=== PATIENT | female | born 1965 | race Caucasian/White ===

== ENCOUNTER 2020-05-10 10:31 | Outpatient (REF) | payer OTHER, SELFPAY ==
[2020-05-10 22:12] LABS: ALT 33 U/L (14-59); AST 19 U/L (15-37); Anion Gap 9.2 mmol/L (3-11); BUN 14 mg/dL (7-18); CO2 25.8 mmol/L (21.0-32.0); Calcium 9.2 mg/dL (8.5-10.1); Calculated LDL 116 mg/dL (<100); Chloride 106 mmol/L (98-107); Cholesterol 189 mg/dL (<200); Glucose 125 mg/dL (74-106); HDL Cholesterol 47 mg/dL (40-60); Potassium 4.4 mmol/L (3.5-5.1); Sodium 141 mmol/L (136-145); Triglyceride 132 mg/dL (<150)
[2020-05-12 10:14] LABS: Hepatitis C Ab w Rflx HCV PCR Negative (Negative)
== END 2020-05-10 10:51 ==
LOC: NCHCN 10:31
PROVIDERS: PCP Nurse Practitioner Family; Visit Provider Nurse Practitioner Family
DX: E78.5 Hyperlipidemia, unspecified (principal); E11.9 Type 2 diabetes mellitus without complications; Z11.59 Encounter for screening for other viral diseases
CPT/HCPCS: 80048; 80061; 86803; 84450; 84460

== ENCOUNTER 2020-11-14 01:35 | Outpatient (CLI) | payer OTHER, SELFPAY ==
--- NOTE | 2020-11-14 | DI.MAMMO_ITS ---
EXAM: MG MAMMO SCREENING CLINICAL HISTORY: SCREENING, Z12.31 TECHNIQUE: Bilateral full field digital CC and MLO mammographic images were obtained with 3D tomosyn thesis and utilizing computer aided detection (CAD). COMPARISON: Available for comparison. FINDINGS: Masses/Architectural Distortion: None seen. Microcalcifications: No suspicious pleomorphic-type are seen. Skin Thickening/Nipple Retraction: None. IMPRESSION: 1. No significant interval change with no specific features of malignancy noted. 2. Unless there is more urgent need, screening mammography is recommended, as per [place] [employer] guidelines. BI-RADS Category 1 - Negative Breast Density - Category B - Scattered areas of fibroglandular density Breast density category C or D implies that the patient has dense breast tissue. Dense breast tissue is very common and is not abnormal but dense breast tissue can make it harder to find cancer on a ma mmogram. Also, dense breast tissue may increase their breast cancer risk. This information about the result of the mammogram report was provided to the patient to raise their awareness. Use this report when you speak with the patient about their risks for breast cancer, which includes their family hist ory. At that time, you may recommend for more screening tests (Ultrasound or MRI) as they might be us eful based on their risk. A negative radiographic report should not delay biopsy if a dominant or clinically suspicious mass is present. Up to ten percent of cancers are not identified on mammography. A negative report may reinforce clinical impression. Adenosis and dense breasts may obscure an underlying neoplasm. False positive reports average 6 to 10%. Patient will receive a letter notifying them of these results.
== END 2020-11-14 01:55 ==
PROVIDERS: PCP Nurse Practitioner Family; Visit Provider Nurse Practitioner Family
DX: Z12.31 Encounter for screening mammogram for malignant neoplasm of breast (principal)
CPT/HCPCS: 77063; 77067

== ENCOUNTER 2021-06-12 14:44 | Outpatient (REF) | payer OTHER, SELFPAY ==
[2021-06-12 14:41] LABS: Anion Gap 10.4 mmol/L (3-11); BUN 12 mg/dL (7-18); CO2 24.6 mmol/L (21.0-32.0); CREATININE 0.9 mg/dL (0.55-1.02); Calcium 9.1 mg/dL (8.5-10.1); Chloride 103 mmol/L (98-107); Glucose 148 mg/dL (74-106); Potassium 4.7 mmol/L (3.5-5.1); Sodium 138 mmol/L (136-145)
== END 2021-06-12 14:45 | disposition home or self-care (01) ==
LOC: NCHCN 14:44
PROVIDERS: PCP Nurse Practitioner Family; Visit Provider Nurse Practitioner Family
DX: E11.319 Type 2 diabetes mellitus with unspecified diabetic retinopathy without macular edema; F41.8 Other specified anxiety disorders
CPT/HCPCS: 80048

== ENCOUNTER 2022-03-20 14:12 | Outpatient (REF) | payer OTHER, SELFPAY ==
--- NOTE | 2022-03-20 10:30 | PAPFT_PTH ---
PATIENT: Phyllis Smith LOC: [facility] U#:[id number] AGE/SX: 56/F ROOM: RE03/20/[address]: Lisa Alcantara : 1965 BED: DIS: 03/20/2022 SPEC #: [id number] RECD: 03/20/22 17:41 STATUS: NEELAM REQ #: [id number] YARELY: 03/20/22 10:[address]: Lisa Alcantara DEPT: [facility] Cytology RECD BY: Radha Saenz ENTERED: 03/20/22 17:42 SP TYPE: PAPFT OTHR DR: Unknown,Unknown Tissues: 1 - CX/ENDOCX FOR PAP SMEARS Procedures: PAP THIN PREP/[facility] Screening HPV DNA PROBE Comments: [id number] (CHLAMYDIA/GC)
[2022-03-21 13:57] LABS: Chlamydia Result Negative (Negative); GC Result Negative (Negative)
== END 2022-03-20 14:13 | disposition home or self-care (01) ==
LOC: LBN 14:12
PROVIDERS: Visit Provider Nurse Practitioner Family
DX: Z11.3 Encounter for screening for infections with a predominantly sexual mode of transmission (principal); Z12.4 Encounter for screening for malignant neoplasm of cervix; Z11.51 Encounter for screening for human papillomavirus (HPV); Z00.00 Encounter for general adult medical examination without abnormal findings; Z01.419 Encounter for gynecological examination (general) (routine) without abnormal findings
CPT/HCPCS: 87491; 87591; 88142; 87624

== ENCOUNTER 2022-06-20 16:06 | Outpatient (REF) | payer OTHER, SELFPAY ==
[2022-06-20 14:29] LABS: HCT 37.7 % (36.0-46.0); HGB 12.6 g/dL (11.2-15.7); MCH 28.2 pg (27.0-33.0); MCHC 33.4 % (32.0-36.0); MCV 84 fL (80-95); Platelet Count 294 10^3/uL (130-400); RBC 4.47 10^6/uL (3.93-5.22); RDW-SD 43.1 fL; WBC 5.39 10^3/uL (4.4-10.8)
[2022-06-20 14:49] LABS: ALT 45 U/L (14-59); AST 25 U/L (15-37); Albumin 4.1 g/dL (3.4-5.0); Alkaline Phosphatase 67 U/L (46-116); Anion Gap 10.3 mmol/L (3-11); BUN 19 mg/dL (7-18); Bilirubin, Total 0.9 mg/dL (0.2-1.0); CO2 25.7 mmol/L (21.0-32.0); CREATININE 0.9 mg/dL (0.55-1.02); Calcium 9.5 mg/dL (8.5-10.1); Calculated LDL 93 mg/dL (<100); Chloride 101 mmol/L (98-107); Cholesterol 173 mg/dL (<200); Estimated GFR 74.57 (mL/min/1.73m2); Glucose 129 mg/dL (74-106); HDL Cholesterol 50 mg/dL (40-60); Potassium 4.3 mmol/L (3.5-5.1); Sodium 137 mmol/L (136-145); Total Protein 7.9 g/dL (6.4-8.2); Triglyceride 151 mg/dL (<150)
== END 2022-06-20 16:07 | disposition home or self-care (01) ==
LOC: NCHCN 16:06
PROVIDERS: Visit Provider Nurse Practitioner Family
DX: E11.9 Type 2 diabetes mellitus without complications (principal); E78.5 Hyperlipidemia, unspecified
CPT/HCPCS: 80053; 80061; 85027

== ENCOUNTER 2022-11-20 01:18 | Outpatient (CLI) | payer OTHER, SELFPAY ==
--- NOTE | 2022-11-20 | DI.MAMMO_ITS ---
Exam(s) MAMMO SCREENING EXAM: MAMMO SCREENING CLINICAL HISTORY: SCREENING FOR BREAST CANCER Z12.39 TECHNIQUE: Bilateral full field digital CC and MLO mammographic images were obtained with 3D tomosyn thesis and utilizing computer aided detection (CAD). COMPARISON: Available for comparison. FINDINGS: Masses/Architectural Distortion: None seen. Microcalcifications: No suspicious pleomorphic-type are seen. Skin Thickening/Nipple Retraction: None. IMPRESSION: 1. No significant interval change with no specific features of malignancy noted. 2. Unless there is more urgent need, screening mammography is recommended, as per [employer] guidelines. BI-RADS Category 1 - Negative Breast Density - Category B - Scattered areas of fibroglandular density Breast density category C or D implies that the patient has dense breast tissue. Dense breast tissue is very common and is not abnormal but dense breast tissue can make it harder to find cancer on a ma mmogram. Also, dense breast tissue may increase their breast cancer risk. This information about the result of the mammogram report was provided to the patient to raise their awareness. Use this report when you speak with the patient about their risks for breast cancer, which includes their family hist ory. At that time, you may recommend for more screening tests (Ultrasound or MRI) as they might be us eful based on their risk. A negative radiographic report should not delay biopsy if a dominant or clinically suspicious mass is present. Up to ten percent of cancers are not identified on mammography. A negative report may reinforce clinical impression. Adenosis and dense breasts may obscure an underlying neoplasm. False positive reports average 6 to 10%. Patient will receive a letter notifying them of these results.
== END 2022-11-20 01:38 ==
PROVIDERS: Visit Provider Nurse Practitioner Family
DX: Z12.31 Encounter for screening mammogram for malignant neoplasm of breast (principal)
CPT/HCPCS: 77063; 77067

== ENCOUNTER 2023-03-03 07:43 | Day surgery (SDC) | payer OTHER, SELFPAY ==
--- NOTE | 2023-03-02 19:17 | W.PM.DSUDISC ---
Date of service: 03/03/23 Time of Service: 09:46 Discharge Plan Disposition Patient Disposition: Home Condition: Good Discharge Details Reason For Visit: Screening colonoscopy Attending Provider: Greg Mccoy Primary Care Provider: Lisa Alcantara Home Meds and New Rx's Prescriptions: Continued Wegovy 1.7 mg/0.75 mL pen injector 1.7 mg subcut QWEEK Rx Instructions: administer weeks 13 through 16 of therapy losartan 25 mg tablet 25 mg PO DAILY aspirin [Adult Low Dose Aspirin] 81 mg tablet,delayed release (DR/EC) 81 mg PO DAILY multivitamin [Daily Multi-Vitamin] 1 EACH tablet 1 ea PO DAILY metformin 500 mg tablet 1,000 mg PO BID Discontinued bisacodyl [Dulcolax (bisacodyl)] 5 mg tablet,delayed release (DR/EC) 5 mg PO ONCE Qty: 4 0RF Rx Instructions: Take per colonoscopy instructions provided by ordering providers office polyethylene glycol 3350 17 gram/dose powder 17 g PO ONCE Qty: 238 0RF Rx Instructions: Take per colonoscopy instructions provided by ordering providers office Discharge Instructions Instructions: Colorectal Polyps (GEN) Additional Instructions: Phyllis, you were able to complete your colonoscopy today without any problems. He did have a single polyp in the first portion of your large intestine (which is known as your cecum) I removed this completely. I will be in touch when I have the final report from the pathologist with my final recommendations. 1. If tolerated, consume a soft, low fiber diet for 1-2 days. 2. Do not drive, drink alcohol, operate machinery, make critical decisions, or do activities that require coordination or balance for 24 hours. 3. Because air was put into your colon during the procedure, expelling air from your rectum (passing gas or farting) is normal. 4. You may not have a bowel movement for 1-3 days because of the colonoscopy prep. This is normal. 5. Go directly to the emergency room if you notice any of the following: Develop chills (warm to touch), or if you have a thermometer and your temperature is above 101 Difficulty breathing or difficultly swallowing Persistent vomiting Severe abdominal pain, other than gas cramps Severe chest pain Black, tarry stools Any bleeding ? exceeding one tablespoon 6. Call your physician if the site where your intravenous was started becomes red, swollen, painful, and warm to touch. 7. Your physician has reviewed your pre-procedure medications. Please continue to take those medications as previously ordered. You will be given specific information/education regarding any changes to your medications before leaving. Activity:: Activity as Tolerated Diet:: As Tolerated Discharge Orders Discharge Orders: Discharge Order (Routine); Ordered 03/02/23 Ordered By: Greg Mccoy DS: Diagnosis Discharge Diagnosis (1) Screen for colon cancer: Status: Acute Asessment and Plan: Follow-up on polypectomy results
--- NOTE | 2023-03-02 19:19 | COLE_ITS ---
Date of service: 03/03/23 Time of Service: 09:48 Colonoscopy Report Date of procedure: 03/03/23 Pre-op diagnosis general: Screening colonoscopy Post-op diagnosis procedure note: other (Cecal polyp) Procedure: Colonoscopy with polypectomy Surgeon: Greg Mccoy Anesthesia Type: General:No Airway Estimated blood loss (mL): 5 Pathology: other (Cecal polyp) Complications: None Disposition: same day Indications: Phyllis is a 57 year odl woman who is following up for her second colonoscopy Prep: Miralax/Dulcolax Procedure Start Time: :28 Procedure End Time: :40 Retraction Time: 9 Findings: 0.25 cm cecal polyp Procedure Description: After the induction of monitored anesthetic care, and with the patient in left lateral decubitus position, I began by performing an external anorectal exam.? Perineum and skin were normal, as was the anal verge.? There was no evidence of external hemorrhoids.? Next, I performed a digital rectal exam.? I did not appreciate any abnormal findings.? Next, I advanced a colonoscope into the re ctal vault.? I performed retroflexion.? This was normal.? Using insufflation, I then advanced the colonoscope beyond the rectal folds and into the sigmoid colon before advancing towards the cecum.? The quality of the prep was excellent.? The scope was noted to be in the cecum by identification of the ileocecal valve and appendiceal orifice.? Within the cecum was a 0.25 cm sessile polyp. I removed it with cold forceps polypectomy. There was minimal bleeding. I then began withdrawing the colonoscope using repeated irrigation as necessary for full evaluation of the colonic mucosa. ?Once the scope was withdrawn to the level of the rectum, great care was taken to examine portions of the rectal folds.? Finally, the scope was withdrawn and the patient was brought to the same-day surgery recovery unit as the anesthetic wore off. ?The findings and instructions were shared with the patient prior to discharge.
[2023-03-03 08:03] VITALS: BP 145/87; PULSE 89; RESP 20; TEMP 36.1; O2SAT 97
[2023-03-03] MEDS: Lactated Ringers 1,000 ML 80 ML IV (08:20)
--- NOTE | 2023-03-03 08:40 | W.ANESPRE ---
General Info Date of Service Date Performed: 03/03/23 Height: 5 ft 0.5 in Weight: 77.9 kg Body Mass Index (BMI): 33.0 Surgical Procedure: Operation Date: 03/03/23 09:05 Proposed Procedure Side Surgeon p Savanna Mccoy MD Meds Allergies and Home Medications Allergies Allergy/AdvReac Type Severity Reaction Status Date / Time penicillin V Allergy Intermediate Skin Rash Unverified 03/03/23 07:59 Home Medication Medication Instructions Recorded multivitamin (Daily Multi-Vitamin 1 ea PO DAILY 03/25/17 tablet) aspirin 81 mg tablet,delayed 81 mg PO DAILY 02/20/23 release (Adult Low Dose Aspirin) losartan 25 mg tablet 25 mg PO DAILY 02/20/23 metformin 500 mg tablet 1,000 mg PO BID 02/20/23 semaglutide (weight loss) 1.7 1.7 mg subcut QWEEK 02/20/23 mg/0.75 mL subcutaneous pen injector ([employer]) Current Visit Medications: Current Medications Generic Name Dose Route Start Last Admin Trade Name Michaelq PRN Reason Stop Dose Admin Hyoscyamine Sulfate 0.125 mg 03/02/23 19:20 Hyoscyamine 0.125 Mg Sl/Oral/Chew SL 04/01/23 19:19 DIRECTED PRN Ringer's Solution 1,000 mls @ 80 mls/hr 03/03/23 06:00 03/03/23 08:20 IV 03/03/23 23:59 80 mls/hr INFUSION DAIN Administration IV Miscellaneous Supplies 1 each 03/03/23 06:00 Iv Access IV 03/03/23 23:59 DIRECTED DAIN Ondansetron HCl 4 mg 03/02/23 19:20 Ondansetron 4 Mg/2 Ml Vial IVP 04/01/23 19:19 Q4H PRN PRN Nausea / Vomiting Sodium Chloride 0 ml 03/03/23 06:00 Normal Saline Flush 10 Ml Syr IV 03/03/23 23:59 PRN PRN Sodium Chloride 0 ml 03/03/23 06:00 Normal Saline 10 Ml Vial IJ 03/03/23 23:59 DIRECTED PRN Sterile Water 0 ml 03/03/23 06:00 Water,Injection,Sterile 10 Ml Vial IJ 03/03/23 23:59 DIRECTED PRN PFSH Active Problems Active Problems: Problem Status Onset Code Screen for colon cancer Z12.11 Medical History Medical History Candidiasis of vulva and vagina Cataract DM (diabetes mellitus) Medical History Comments:: second c section, spinal went to lungs hard time breathing Surgical History Surgical History (Updated 03/03/23 @ 08:02 by Remedios Thao) Biopsy, Soft Tissue (07/15/17) lipoma, right axilla Cholecystectomy Colonoscopy - IV Sedation (04/11/17) Hx of section x 2 Tobacco Smoking/Tobacco Use Status: Never Alcohol Alcohol Intake: current Alcohol intake frequency: holidays/special occasions only Substance Use Substance use: Never Substance use type: does not use Details: alcohol: months Vital Signs and Lab Results Vital Signs Most Recent Vital Signs in EMR: Most Recent Vital Signs Temp Pulse Resp BP Pulse Ox 36.1 C L 89 20 145/87 H 97 03/03/23 08:03 03/03/23 08:03 03/03/23 08:03 03/03/23 08:03 03/03/23 08:03 Point of Care Results Point of Care Results: Finger Stick Blood Glucose 134 03/03/23 08:14 Lab Results Blood Type / Crossmatch: No Data to Display Complete Blood Count: No Data to Display Complete Metabolic Panel: No Data to Display Liver Function Panel: No Data to Display Coagulation Panel: No Data to Display Cardiac Panel: No Data to Display Arterial Blood Gas: No Data to Display Venous Blood Gas: No Data to Display Pancreas Panel: No Data to Display Thyroid Panel: No Data to Display Infectious Disease: No Data to Display Blood Cultures: No Data to Display Toxicology Panel: No Data to Display Anesthesia Assessment and Plan Anesthesia History Personal History: Other Family History: No Family History of Anesthesia Complications Exercise Tolerance Exercise Tolerance: Metabolic Equivalents>4 Pertinent Negatives Pertinent Negatives: No Symptoms of GERD Cardiac & Pulmonary Exam Cardiac Exam: Normal S1/S2 Heart Sounds Pulmonary Exam: Clear Bilateral Breath Sounds Implantable Cardiac Device Does patient have a Pacemaker or an ICD?: No Airway Exam Known Difficult Airway: No Mallampati Class: 2 Mouth Opening: Normal (> 3cm) Thyromental Distance: Greater than 3 cm Neck Range of Motion: Full ROM Neck Circumference: Normal Teeth Condition: Normal Dentition and Removable Dentures/Plates Lower ASA Classification ASA Score: ASA 2 Emergency Case?: No NPO Status NPO Status: Full Stomach (Wegovy) Anesthesia Plan Resuscitation Status: Full Code Anesthesia Technique: General Anesthesia Airway Planned: Natural Airway Monitors Used: Standard Monitors Preoperative Comments:: uncontrolled GERD
[2023-03-03 08:41] VITALS: BMI 33.0
--- NOTE | 2023-03-03 09:35 | BOWEL_PTH ---
PATIENT: Phyllis Smith LOC: [facility] U#:[id number] AGE/SX: 57/F ROOM: RE03/03/[address]: Greg Mccoy MD : 1965 BED: DIS: 03/03/2023 SPEC #: [id number] RECD: 03/03/23 12:51 STATUS: NEELAM RE #: [id number] YARELY: 03/03/23 09:[address]: Greg Mccoy DEPT: Surgical Specimen RECD BY: Radha Saenz ENTERED: 03/03/23 12:52 SP TYPE: Bowel OTHR DR: Lisa Alcantara Tissues: 1 - BIOPSY BOWEL Procedures: GROSS AND MICRO LEVEL 4 Comments: [id number]
[2023-03-03 09:47] VITALS: BP 119/66; PULSE 100; RESP 24; TEMP 36.4; O2SAT 99
[2023-03-03 09:52] VITALS: BP 126/70; PULSE 89; RESP 22; O2SAT 100
[2023-03-03 09:58] VITALS: BP 131/73; PULSE 87; RESP 19; TEMP 36.5; O2SAT 100
--- NOTE | 2023-03-03 10:04 | W.ANESPOSTOP ---
Postoperative Evaluation Date, Time and Location Date Performed: 03/03/23 Time Performed: 10:04 Patient Location: PACU Vital Signs Most Recent Imported Vital Signs: Most Recent Vital Signs Temp Pulse Resp BP Pulse Ox 36.5 C 87 19 131/73 100 03/03/23 09:58 03/03/23 09:58 03/03/23 09:58 03/03/23 09:58 03/03/23 09:58 Pain Score Most Recent Pain Score: Most Recent Pain Score Pain Level 0 03/03/23 09:58 Assessment Mental Status: Awake (Alert & Oriented to Patient Baseline) Airway and Respiratory Function: Patent airway with normal (patient baseline) respiratory exam Cardiovascular Function: Hemodynamically Stable Hydration Status: Adequately Hydrated Nausea & Vomiting: No Nausea or Vomiting Pain: Pt. Denies Any Pain Peripheral Nerve Block: Patient did not receive a nerve block
[2023-03-03 10:05] VITALS: BP 111/75; PULSE 85; RESP 16; TEMP 36.2; O2SAT 96
[2023-03-03 10:30] VITALS: BP 127/72; PULSE 82; RESP 16; TEMP 36.4; O2SAT 100
== END 2023-03-03 10:40 | disposition home or self-care (01) ==
PROVIDERS: PCP Nurse Practitioner Family; Visit Provider Surgery
PROC: 0DJD8ZZ Inspection of Lower Intestinal Tract, Via Natural or Artificial Opening Endoscopic (ICD-10-PCS; CPT 45378; principal; 2023-03-03 09:00)
DX: Z12.11 Encounter for screening for malignant neoplasm of colon (principal); E11.9 Type 2 diabetes mellitus without complications; D12.0 Benign neoplasm of cecum
CPT/HCPCS: 45380; 88142; 88305; J2001; J2704

== ENCOUNTER 2023-04-01 21:03 | Outpatient (REF) | payer OTHER, SELFPAY ==
[2023-04-01 22:23] LABS: Bilirubin Negative (Negative); Blood Large (Negative); Clarity Sl Cloudy (Clear); Glucose Negative (Negative); Ketones Trace mg/dL (Negative); Leukocyte Esterase Negative (Negative); Nitrite Negative (Negative); Specific Gravity 1.025 (1.005-1.025); Urobilinogen 0.2 mg/dL (Up to 0.2); pH 5.5 (5-8)
[2023-04-01 22:47] LABS: Bacteria Few HPF (Negative); C & S Indicated? Yes; Crystals Negative HPF (Negative); Epithelial Cells Few HPF (Negative); Mucus Negative (Negative); RBC >50 HPF (0-2)
== END 2023-04-01 21:04 | disposition home or self-care (01) ==
LOC: NCHCN 21:03
PROVIDERS: PCP Nurse Practitioner Family; Visit Provider Nurse Practitioner Family
DX: R31.9 Hematuria, unspecified (principal)
CPT/HCPCS: 81003; 81015; 87086

== ENCOUNTER 2023-04-16 15:59 | Outpatient (REF) | payer OTHER, SELFPAY | END 2023-04-16 16:00 | disposition home or self-care (01) | LOC: NCHCN 15:59 | PROVIDERS: PCP Nurse Practitioner Family; Visit Provider Nurse Practitioner Family | DX: R31.9 Hematuria, unspecified (principal); R82.998 Other abnormal findings in urine | CPT/HCPCS: 87086 ==

== ENCOUNTER 2023-04-18 07:30 | Day surgery (SDC) | payer OTHER, SELFPAY ==
--- NOTE | 2023-04-18 06:24 | W.ANESPRE ---
General Info Date of Service Date Performed: 04/18/23 Height: 5 ft 0.5 in Weight: 77.9 kg Body Mass Index (BMI): 33.0 Surgical Procedure: Operation Date: 04/18/23 09:40 Proposed Procedure Side Surgeon p Cataract Extraction with IOL Implant Right Castro Allen MD Meds Allergies and Home Medications Allergies Allergy/AdvReac Type Severity Reaction Status Date / Time penicillin V Allergy Intermediate Skin Rash Unverified 04/18/23 07:44 Home Medication Medication Instructions Recorded multivitamin (Daily Multi-Vitamin 1 ea PO DAILY 03/25/17 tablet) aspirin 81 mg tablet,delayed 81 mg PO DAILY 02/20/23 release (Adult Low Dose Aspirin) losartan 25 mg tablet 25 mg PO DAILY 02/20/23 metformin 500 mg tablet 1,000 mg PO BID 02/20/23 semaglutide (weight loss) 1.7 1.7 mg subcut QWEEK 02/20/23 mg/0.75 mL subcutaneous pen injector (Weg[employer]) Current Visit Medications: Current Medications Generic Name Dose Route Start Last Admin Trade Name Freq PRN Reason Stop Dose Admin Acetaminophen 1,000 mg 04/18/23 06:00 Acetaminophen 500 Mg Tab PO 05/18/23 05:59 Q4H PRN PRN Balanced Salt Solution 500 ml 04/18/23 06:00 Balanced Salt Soln.-Plus 500 Ml Bag OP 05/18/23 05:59 DIRECTED [facility] Miscellaneous Medication 0 ml 04/18/23 06:00 Prednisolone 1%, Moxifloxacin 0.5%, Nepafenac 0.1% 5ml Btl OD 05/18/23 05:59 DIRECTED DAIN Miscellaneous Medication 0 ml 04/18/23 06:00 Tropicam./Phenyleph. (1/2.5%) 5 Ml Btl OD 05/18/23 05:59 DIRECTED DAIN Tetracaine HCl 0 ml 04/18/23 06:00 Tetracaine 0.5% 4 Ml Btl OD 05/18/23 05:59 DIRECTED DAIN PFSH Active Problems Active Problems: Problem Status Onset Code Cortical age-related cataract, right eye H25.011 Screen for colon cancer Z12.11 Medical History Medical History (Updated 04/17/23 @ 19:22 by Castro Allen MD) Candidiasis of vulva and vagina Cataract DM (diabetes mellitus) Medical History Comments:: second c section, spinal went to lungs hard time breathing Surgical History Surgical History Biopsy, Soft Tissue (07/15/17) lipoma, right axilla Cholecystectomy Colonoscopy - IV Sedation (~02/2023) Colonoscopy 04/2017 Hx of section x 2 Tobacco Smoking/Tobacco Use Status: Never Alcohol Alcohol Intake: current Alcohol intake frequency: holidays/special occasions only Substance Use Substance use: Never Substance use type: does not use Details: alcohol: months Vital Signs and Lab Results Vital Signs Most Recent Vital Signs in EMR: Temp Pulse Resp BP Pulse Ox 36.5 C 85 18 152/73 H 100 04/18/23 07:43 04/18/23 07:43 04/18/23 07:43 04/18/23 07:43 04/18/23 07:43 Lab Results Blood Type / Crossmatch: No Data to Display Complete Blood Count: No Data to Display Complete Metabolic Panel: No Data to Display Liver Function Panel: No Data to Display Coagulation Panel: No Data to Display Cardiac Panel: No Data to Display Arterial Blood Gas: No Data to Display Venous Blood Gas: No Data to Display Pancreas Panel: No Data to Display Thyroid Panel: No Data to Display Infectious Disease: No Data to Display Blood Cultures: No Data to Display Toxicology Panel: No Data to Display Anesthesia Assessment and Plan Anesthesia History Personal History: Other Family History: No Family History of Anesthesia Complications Exercise Tolerance Exercise Tolerance: Metabolic Equivalents>4 Cardiac & Pulmonary Exam Cardiac Exam: Normal S1/S2 Heart Sounds Pulmonary Exam: Clear Bilateral Breath Sounds Implantable Cardiac Device Does patient have a Pacemaker or an ICD?: No Airway Exam Known Difficult Airway: No Mallampati Class: 2 Mouth Opening: Normal (> 3cm) Thyromental Distance: Greater than 3 cm Neck Range of Motion: Full ROM Neck Circumference: Normal Teeth Condition: Normal Dentition and Removable Dentures/Plates Lower ASA Classification ASA Score: ASA 2 Emergency Case?: No NPO Status NPO Status: NPO Clears >2 hours, Solids >8 hours Anesthesia Plan Resuscitation Status: Full Code Anesthesia Technique: MAC Anesthesia Airway Planned: Natural Airway Monitors Used: Standard Monitors Preoperative Comments:: 57 yo female for cataract removal. Would like MKO Sig PMHx: HTN, DM (semaglutide, metformin), never smoker, occ EtOH, Previous Anes: - colo, prop, scott 2 grade 2a (uncontrolled GERD), she states that she threw up at the end.
[2023-04-18 07:43] VITALS: BP 152/73; PULSE 85; RESP 18; TEMP 36.5; O2SAT 100
[2023-04-18] MEDS: Tropicam./Phenyleph. (1/2.5%) 5 ML BTL OD ×3 (07:43→07:57)
[2023-04-18 08:04] VITALS: BMI 33.0
[2023-04-18] MEDS: Povidone-Iodine Ophth 30 ML BTL (08:53)
[2023-04-18] MEDS: Tetracaine 0.5% 4 ML BTL OD (08:53)
[2023-04-18] MEDS: Balanced Salt Soln.-PLUS 500 ML BAG OP (09:00)
[2023-04-18] MEDS: Duovisc Viscoelastic System EACH 1 EACH (09:00)
[2023-04-18] MEDS: Lidocaine 1% Pres-Free 5 ML VIAL (09:01)
[2023-04-18] MEDS: Phenylephrine/Lidocaine (15/10) MG/ML 1 ML VIAL (09:02)
[2023-04-18] MEDS: Trypan Blue 0.06% 0.5 ML SYR (09:04)
[2023-04-18 09:26] VITALS: BP 124/62; PULSE 80; RESP 16; TEMP 36.4; O2SAT 100
--- NOTE | 2023-04-18 09:27 | W.PM.DSUDISC ---
Date of service: 04/18/23 Time of Service: 09:27 Discharge Plan Disposition Patient Disposition: Home Discharge Details Attending Provider: Castro Allen Primary Care Provider: Lisa Alcantara Home Meds and New Rx's Prescriptions: No Action Wegovy 1.7 mg/0.75 mL pen injector 1.7 mg subcut QWEEK Rx Instructions: administer weeks 13 through 16 of therapy losartan 25 mg tablet 25 mg PO DAILY aspirin [Adult Low Dose Aspirin] 81 mg tablet,delayed release (DR/EC) 81 mg PO DAILY multivitamin [Daily Multi-Vitamin] 1 EACH tablet 1 ea PO DAILY metformin 500 mg tablet 1,000 mg PO BID Discharge Instructions Stand Alone Forms: Post-op Topical Cataract, Miroslava Ponce (DSU) Discharge Orders Discharge Orders: Discharge Order (Routine); Ordered 04/18/23 Ordered By: Castro Allen DS: Diagnosis Discharge Diagnosis (1) Cortical age-related cataract, right eye: Status: Resolved
--- NOTE | 2023-04-18 09:27 | W.PM.OP ---
Date of service: 04/18/23 Time of Service: 09:28 Operative Note Operative Note DATE OF PROCEDURE: 04/18/23 PRE-OP DIAGNOSIS: Dense cortical cataract, right eye POST-OP DIAGNOSIS: same PROCEDURE: Cataract extraction using phacoemulsification with intraocular lens implant, right eye SURGEON: Castro Allen ANESTHESIA TYPE: Local By Surgeon and MAC Refer to Anesthesia Record ESTIMATED BLOOD LOSS: 0 PATHOLOGY: none sent COMPLICATIONS: None Patient was transported to: same day Patient's condition: stable Implants: Chuy & Chuy Tecnis Eyhance [id number] Indications: Progressive visual loss due to cataract, right eye Procedure Description: CATARACT SURGERY OPERATIVE REPORT PREOPERATIVE DIAGNOSIS: 1. Dense cortical cataract, right eye POSTOPERATIVE DIAGNOSIS: Same OPERATION: 1. Cataract extraction using phacoemulsification with posterior chamber intraocular lens implant, right eye. IOL: IOL Bar Tacker Sewing Machine/Model: Chuy & Chuy Tecnis Eyhance DIB00 IOL Power: + 13.0 diopters IOL Serial Number: [id number] Optic Diameter: 6.0mm Haptic/Overall Diameter: 13.0mm PHACO INFO: VasylMediciNovaon Vision System with OZil and Active Fluidics Cumulative Dispersed Energy (CDE): 3.99 seconds SURGEON: Castro Allen MD, RENETTA ANESTHESIA: Monitored Anesthesia Care (MAC), with local sub-tenon's anesthetic infiltration COMPLICATIONS: None SPECIMENS: None INDICATIONS FOR PROCEDURE: The patient is a 57-year-old lady with history of diminished visual acuity in her right eye secondary to the development of dense cortical cataract. She is significantly symptomatic that she desires cataract surgery and attempt to improve and maximize her vision. The option of cataract surgery was offered to the patient and she wished to proceed. See office notes for detailed information. PROCEDURE: The correct surgical eye was identified and marked as the right eye and the pupil was dilated in the preoperative area using mydriatics and cycloplegics. The dilated pupil size was 7.0 mm. Oral sedation was administered in the form of an Imprimis MKO Melt (midazolam 3mg/ketamine 25mg/ondansetron 2mg). The patient was brought to the operating room where cardiopulmonary monitoring was instituted and surgical time-out was performed, confirming the correct operative eye and IOL power. Topical anesthesia was administered and ophthalmic povidone-iodine 5% was instilled into the conjunctival fornices. The martine-ocular area was prepped with Betadine 10% solution and draped in the usual sterile fashion for intraocular surgery, including an aperture drape. A Tegaderm transparent film dressing was cut in half and used to cover the lashes and lid margins. Care was taken to sequester the lashes and lid margins under the Tegaderm dressing. A lid speculum was placed between the lids of the operative eye and the Vasyl LuxOR Revalia operating microscope was maneuvered into position. Zhang scissors were then used to make a conjunctival buttonhole approximately 6mm posterior to the limbus in the inferonasal quadrant. Blunt dissection was carried out to expose bare sclera, and a blunt-tipped sub-tenon?s anesthesia cannula was introduced and passed posteriorly along the globe where non-preserved plain lidocaine was injected into posterior sub-Tenon?s space. A sideport knife was used to make a paracentesis port. VisionBlue was injected into the anterior chamber and allowed to sit for 20 seconds. Intraocular phenylephrine/lidocaine was injected into the anterior chamber. The anterior chamber was filled with viscoelastic. A keratome knife was used to construct a 2-plane clear corneal tunnel extending 2.0mm into clear cornea. A flap was raised on the anterior capsule and capsulorhexis forceps were used to complete a continuous curvilinear capsulorhexis of 5.0 mm. Balanced salt solution was then used to perform cortical cleaving hydrodissection and nuclear hydrodelineation until the lens could be freely rotated within the capsular bag. The lens nucleus was then disassembled and removed within the capsular bag and iris plane using phacoemulsification. Residual cortical material was removed using the I/A handpiece. The posterior capsule was carefully polished to remove as much residual lens epithelial cells as safely possible. The capsular bag was then inflated and the anterior chamber deepened with cohesive viscoelastic. The lens implant described above was inserted into the capsular bag using the Chuy and Maximilian Simplicity pre-loaded injector. A Kuglen hook was used to dial the IOL into position. Residual viscoelastic was then removed first from posterior to the IOL, then from the anterior chamber using the I/A handpiece. The lens implant was noted to center nicely within the capsular bag. The incisions were stromally hydrated, and the anterior chamber was reformed using BSS. Then 0.5cc of moxifloxacin 1.0mg/ml were injected into the capsular bag and anterior chamber. The incisions were checked with a Weck spear and found to be secure. Several drops of ophthalmic povidone-iodine 5% were then applied to the eye followed by two drops of Imprimis combination prednisolone/moxifloxacin/nepafenac solution. The drapes were removed and a clear plastic protective eye shield was placed over the eye. The patient was then returned to Same Day Surgery in stable condition.
--- NOTE | 2023-04-18 09:39 | W.ANESPOSTOP ---
Postoperative Evaluation Date, Time and Location Date Performed: 04/18/23 Time Performed: 09:39 Patient Location: Day Surgery Unit Vital Signs Most Recent Imported Vital Signs: Most Recent Vital Signs Temp Pulse Resp BP Pulse Ox 36.4 C L 80 16 124/62 100 04/18/23 09:26 04/18/23 09:26 04/18/23 09:26 04/18/23 09:26 04/18/23 09:26 Pain Score Most Recent Pain Score: Most Recent Pain Score Pain Level 0 04/18/23 09:26 Assessment Mental Status: Awake (Alert & Oriented to Patient Baseline) Airway and Respiratory Function: Patent airway with normal (patient baseline) respiratory exam Cardiovascular Function: Hemodynamically Stable Hydration Status: Adequately Hydrated Nausea & Vomiting: No Nausea or Vomiting Pain: Pt. Denies Any Pain Peripheral Nerve Block: Patient did not receive a nerve block
[2023-04-18 09:53] VITALS: BP 116/59; PULSE 80; RESP 16; TEMP 36.7; O2SAT 100
== END 2023-04-18 10:02 | disposition home or self-care (01) ==
PROVIDERS: PCP Nurse Practitioner Family; Visit Provider Ophthalmology
PROC: (CPT 66984; principal; 2023-04-18 09:30)
DX: H25.011 Cortical age-related cataract, right eye (principal)
CPT/HCPCS: 66984; V2632

== ENCOUNTER 2023-05-02 06:58 | Day surgery (SDC) | payer OTHER, SELFPAY ==
--- NOTE | 2023-05-02 07:05 | W.PREOPHP ---
Assessment and Plan Assessment and plan (1) Posterior subcapsular age-related cataract of left eye: Status: Acute Assessment and plan: Assessment: Visually significant cataract of the left eye. Plan: Cataract extraction with lens implantation of the left eye. (2) Nuclear age-related cataract, left eye: Status: Acute Assessment and plan: Assessment: Visually significant cataract of the left eye. Plan: Cataract extraction with lens implantation of the left eye. History of Present Illness History of Present Illness Chief Complaint: Progressive decreased vision, left eye Narrative: The patient is a 57-year-old lady with history of progressive decreased vision in both eyes secondary to the development of bilateral nuclear/posterior subcapsular cataract. She underwent cataract surgery in the right eye on 04/18/2023. Postoperatively she is doing well with uncorrected visual acuity of 20/25. She now presents for cataract surgery in the left eye. Review of Systems All systems reviewed & are unremarkable except as noted in HPI and below PFSH All Active Problems Posterior subcapsular age-related cataract of left eye (Acute) Nuclear age-related cataract, left eye (Acute) Screen for colon cancer (Acute) Medical History Candidiasis of vulva and vagina Cataract DM (diabetes mellitus) Surgical History Biopsy, Soft Tissue (07/15/17) lipoma, right axilla Cholecystectomy Colonoscopy - IV Sedation (~02/2023) Colonoscopy 04/2017 Hx of section x 2 Social History Smoking/Tobacco Use Status: Never Smoking risk assessment performed?: Yes Alcohol Intake: current Alcohol Intake frequency: holidays/special occasions only Drug use: Never Substance use type: does not use Details: alcohol: months Housing: house Do you feel safe at home: Yes Do you feel safe in your relationship?: Yes Meds Allergies and Home Medications Allergies Allergy/AdvReac Type Severity Reaction Status Date / Time penicillin V Allergy Intermediate Skin Rash Unverified 05/02/23 07:18 Home Medications Medication Instructions Recorded Confirmed Type multivitamin (Daily Multi-Vitamin 1 ea PO DAILY 03/25/17 05/02/23 History tablet) aspirin 81 mg tablet,delayed 81 mg PO DAILY 02/20/23 05/02/23 History release (Adult Low Dose Aspirin) losartan 25 mg tablet 25 mg PO DAILY 02/20/23 05/02/23 History metformin 500 mg tablet 1,000 mg PO BID 02/20/23 05/02/23 History semaglutide (weight loss) 1.7 1.7 mg subcut QWEEK 02/20/23 05/02/23 History mg/0.75 mL subcutaneous pen injector (Dennis) Exam Resp Auscultation: clear to auscultation bilaterally Cardio Rate: regular rate Rhythm: regular rhythm
[2023-05-02] MEDS: Tropicam./Phenyleph. (1/2.5%) 5 ML BTL OS ×3 (07:14→07:32)
--- NOTE | 2023-05-02 07:19 | W.ANESPRE ---
General Info Date of Service Date Performed: 05/02/23 Height: 5 ft 0.5 in Weight: 77.8 kg Body Mass Index (BMI): 32.9 Surgical Procedure: Operation Date: 05/02/23 08:40 Proposed Procedure Side Surgeon p Cataract Extraction with IOL Implant Left Castro Allen MD Meds Allergies and Home Medications Allergies Allergy/AdvReac Type Severity Reaction Status Date / Time penicillin V Allergy Intermediate Skin Rash Unverified 05/02/23 07:18 Home Medication Medication Instructions Recorded multivitamin (Daily Multi-Vitamin 1 ea PO DAILY 03/25/17 tablet) aspirin 81 mg tablet,delayed 81 mg PO DAILY 02/20/23 release (Adult Low Dose Aspirin) losartan 25 mg tablet 25 mg PO DAILY 02/20/23 metformin 500 mg tablet 1,000 mg PO BID 02/20/23 semaglutide (weight loss) 1.7 1.7 mg subcut QWEEK 02/20/23 mg/0.75 mL subcutaneous pen injector (Wegovy) Current Visit Medications: Current Medications Generic Name Dose Route Start Last Admin Trade Name Freq PRN Reason Stop Dose Admin Acetaminophen 1,000 mg 05/02/23 06:00 Acetaminophen 500 Mg Tab PO 06/01/23 05:59 Q4H PRN PRN Balanced Salt Solution 500 ml 05/02/23 06:00 Balanced Salt Soln.-Plus 500 Ml Bag OP 06/01/23 05:59 DIRECTED FOR[facility]LY [facility] Miscellaneous Medication 0 ml 05/02/23 06:00 Prednisolone 1%, Moxifloxacin 0.5%, Nepafenac 0.1% 5ml Btl OS 06/01/23 05:59 DIRECTED DAIN Miscellaneous Medication 0 ml 05/02/23 06:00 05/02/23 07:14 Tropicam./Phenyleph. (1/2.5%) 5 Ml Btl OS 06/01/23 05:59 1 drp DIRECTED DAIN Administration Tetracaine HCl 0 ml 05/02/23 06:00 Tetracaine 0.5% 4 Ml Btl OS 06/01/23 05:59 DIRECTED DAIN PFSH Active Problems Active Problems: Problem Status Onset Code Posterior subcapsular age-related cataract of left eye H25.042 Nuclear age-related cataract, left eye H25.12 Cortical age-related cataract, right eye H25.011 Screen for colon cancer Z12.11 Medical History Medical History Candidiasis of vulva and vagina Cataract DM (diabetes mellitus) Medical History Comments:: second c section, spinal went to lungs hard time breathing Surgical History Surgical History Biopsy, Soft Tissue (07/15/17) lipoma, right axilla Cholecystectomy Colonoscopy - IV Sedation (~02/2023) Colonoscopy 04/2017 Hx of section x 2 Tobacco Smoking/Tobacco Use Status: Never Alcohol Alcohol Intake: current Alcohol intake frequency: holidays/special occasions only Substance Use Substance use: Never Substance use type: does not use Details: alcohol: months Vital Signs and Lab Results Point of Care Results Point of Care Results: Finger Stick Blood Glucose 117 05/02/23 07:16 Lab Results Blood Type / Crossmatch: No Data to Display Complete Blood Count: No Data to Display Complete Metabolic Panel: No Data to Display Liver Function Panel: No Data to Display Coagulation Panel: No Data to Display Cardiac Panel: No Data to Display Arterial Blood Gas: No Data to Display Venous Blood Gas: No Data to Display Pancreas Panel: No Data to Display Thyroid Panel: No Data to Display Infectious Disease: No Data to Display Blood Cultures: No Data to Display Toxicology Panel: No Data to Display Anesthesia Assessment and Plan Anesthesia History Personal History: No History of Anesthesia Complications and Other Family History: No Family History of Anesthesia Complications Exercise Tolerance Exercise Tolerance: Metabolic Equivalents>4 Pertinent Negatives Pertinent Negatives: No Symptoms of GERD Cardiac & Pulmonary Exam Cardiac Exam: Normal S1/S2 Heart Sounds Pulmonary Exam: Clear Bilateral Breath Sounds Implantable Cardiac Device Does patient have a Pacemaker or an ICD?: No Airway Exam Known Difficult Airway: No Mallampati Class: 2 Mouth Opening: Normal (> 3cm) Thyromental Distance: Greater than 3 cm Neck Range of Motion: Full ROM Neck Circumference: Normal Teeth Condition: Normal Dentition and Removable Dentures/Plates Lower ASA Classification ASA Score: ASA 2 Emergency Case?: No NPO Status NPO Status: NPO Clears >2 hours, Solids >8 hours Anesthesia Plan Resuscitation Status: Full Code Anesthesia Technique: MAC Anesthesia Airway Planned: Natural Airway Monitors Used: Standard Monitors
[2023-05-02 07:20] VITALS: BP 134/74; PULSE 83; RESP 20; TEMP 36.5; O2SAT 100; BMI 32.9
[2023-05-02] MEDS: Balanced Salt Soln.-PLUS 500 ML BAG OP (08:12)
[2023-05-02] MEDS: Tetracaine 0.5% 4 ML BTL OS (08:14)
[2023-05-02] MEDS: Lidocaine 1% Pres-Free 5 ML VIAL (08:14)
[2023-05-02] MEDS: Phenylephrine/Lidocaine (15/10) MG/ML 1 ML VIAL (08:16)
[2023-05-02] MEDS: Duovisc Viscoelastic System EACH 1 EACH (08:16)
[2023-05-02] MEDS: Povidone-Iodine Ophth 30 ML BTL (08:17)
--- NOTE | 2023-05-02 08:32 | W.PM.DSUDISC ---
Date of service: 05/02/23 Time of Service: 08:32 Discharge Plan Disposition Patient Disposition: Home Discharge Details Attending Provider: Castro Allen Primary Care Provider: Lisa Alcantara Home Meds and New Rx's Prescriptions: No Action Wegovy 1.7 mg/0.75 mL pen injector 1.7 mg subcut QWEEK Rx Instructions: administer weeks 13 through 16 of therapy losartan 25 mg tablet 25 mg PO DAILY aspirin [Adult Low Dose Aspirin] 81 mg tablet,delayed release (DR/EC) 81 mg PO DAILY multivitamin [Daily Multi-Vitamin] 1 EACH tablet 1 ea PO DAILY metformin 500 mg tablet 1,000 mg PO BID Discharge Instructions Stand Alone Forms: Post-op Topical Cataract, Miroslava Ponce (DSU) Discharge Orders Discharge Orders: Discharge Order (Routine); Ordered 05/02/23 Ordered By: Castro Allen DS: Diagnosis Discharge Diagnosis (1) Posterior subcapsular age-related cataract of left eye: Status: Resolved (2) Nuclear age-related cataract, left eye: Status: Resolved
--- NOTE | 2023-05-02 08:33 | ROE_ITS ---
Date of service: 05/02/23 Time of Service: 08:33 Operative Note Operative Note DATE OF PROCEDURE: 05/02/23 PRE-OP DIAGNOSIS: Nuclear/posterior subcapsular cataract, left eye POST-OP DIAGNOSIS: same PROCEDURE: Cataract extraction using phacoemulsification with intraocular lens implant, left eye SURGEON: Castro Allen ANESTHESIA TYPE: Local By Surgeon and MAC Refer to Anesthesia Record PATHOLOGY: none sent COMPLICATIONS: None Patient was transported to: same day Patient's condition: stable Implants: Chuy and Chuy Tecnis Eyhance [id number] Indications: Progressive decreased vision due to cataract, left eye Procedure Description: CATARACT SURGERY OPERATIVE REPORT PREOPERATIVE DIAGNOSIS: 1. Nuclear/posterior subcapsular cataract, left eye POSTOPERATIVE DIAGNOSIS: Same OPERATION: 1. Cataract extraction using phacoemulsification with posterior chamber intraocular lens implant, left eye. IOL: IOL Rv Service Technician/Model: Chuy & Chuy Tecnis Eyhance DIB00 IOL Power: + 14.5 diopters IOL Serial Number: [id number] Optic Diameter: 6.0 mm Haptic/Overall Diameter: 13.0 mm PHACO INFO: Vasyl Huaneng Renewablesurion Vision System with OZil and Active Fluidics Cumulative Dispersed Energy (CDE): 5.0 seconds SURGEON: Castro Allen MD, RENETTA ANESTHESIA: Monitored A [facility] (MAC), with local sub-tenon's anesthetic infiltration COMPLICATIONS: None SPECIMENS: None INDICATIONS FOR PROCEDURE: The patient is a 57-year-old lady with history of diminished visual acuity in both eyes secondary to the development of bilateral nuclear/posterior subcapsular cataract. She has already undergone cataract surgery in the right e ye and is doing well postoperatively. She now presents for cataract surgery in the left eye. See office notes for detailed information. PROCEDURE: The correct surgical eye was identified and marked as the left eye and the pupil was dilated in the preoperative area using mydriatics and cycloplegics. The dilated pupil size was 7.0 mm. Oral sedation was administered in the form of an Imprimis MKO Melt (midazolam 3mg/ketamine 25mg/ondansetron 2mg). The patient was brought to the operating room where cardiopulmonary monitoring was instituted and surgical time-out was performed, confirming the correct operative eye and IOL power. Topical anesthesia was administered and ophthalmic povidone-iodine 5% was instilled into the conjunctival fornices. The martine-ocular area was prepped with Betadine 10% solution and draped in the usual sterile fashion for intraocular surgery, including an aperture drape. A Tegaderm transparent film dressing was cut in half and used to cover the lashes and lid margins. Care was taken to sequester the lashes and lid margins under the Tegaderm dressing. A lid speculum was placed between the lids of the operative eye and the Vasyl LuxOR Revalia operating microscope was maneuvered into position. Zhang scissors were then used to make a conjunctival buttonhole approximately 6mm posterior to the limbus in the inferonasal quadrant. Blunt dissection was carried out to expose bare sclera, and a blunt-tipped sub-tenon?s anesthesia cannula was introduced and passed posteriorly along the globe where non- preserved plain lidocaine was injected into posterior sub-Tenon?s space. A sideport knife was used to make a paracentesis port. Intraocular phenylephrine/lidocaine was injected into the anterior chamber.. The anterior chamber was filled with viscoelastic. A keratome knife was used to construct a 2-plane near-clear corneal tunnel extending 2.0mm into clear cornea. A flap was raised on the anterior capsule and capsulorhexis forceps were used to complete a continuous curvilinear capsulorhexis of 5.0 mm. Balanced salt solution was then used to perform cortical cleaving hydrodissection and nuclear hydrodelineation until the lens could be freely rotated within the capsular bag. The lens nucleus was then disassembled and removed within the capsular bag and iris plane using phacoemulsification. Residual cortical material was removed using the irrigation/aspiration handpiece. The posterior capsule was carefully polished to remove as much residual lens epithelial cells as safely possible. The capsular bag was then inflated and the anterior chamber deepened with viscoelastic. The lens implant described above was inserted into the capsular bag using the Chuy and Chuy Simplicity pre-loaded injector. A Kuglen hook was used to dial the IOL into position. Residual viscoelastic was then removed first from posterior to the IOL, then from the anterior chamber using the I/A handpiece. The lens implant was noted to center nicely within the capsular bag. The incisions were stromally hydrated, and the anterior chamber was reformed using BSS. Then 0.5cc of moxifloxacin 1.0mg/ml were injected into the capsular bag and anterior chamber. The incisions were checked with a Weck spear and found to be secure. Several drops of ophthalmic povidone-iodine 5% were then applied to the eye followed by two drops of Imprimis combination prednisolone/moxifloxacin/nepafenac solution. The drapes were removed and a clear plastic protective eye shield was placed over the eye. The patient was then returned to Same Day Surgery in stable condition.
[2023-05-02 08:37] VITALS: BP 120/67; PULSE 82; RESP 20; TEMP 36.5; O2SAT 100
--- NOTE | 2023-05-02 08:42 | W.ANESPOSTOP ---
Postoperative Evaluation Date, Time and Location Date Performed: 05/02/23 Time Performed: 08:42 Patient Location: Day Surgery Unit Vital Signs Most Recent Imported Vital Signs: Most Recent Vital Signs Temp Pulse Resp BP Pulse Ox 36.5 C 82 20 120/67 100 05/02/23 08:37 05/02/23 08:37 05/02/23 08:37 05/02/23 08:37 05/02/23 08:37 Pain Score Most Recent Pain Score: Most Recent Pain Score Pain Level 0 05/02/23 08:37 Assessment Mental Status: Awake (Alert & Oriented to Patient Baseline) Airway and Respiratory Function: Patent airway with normal (patient baseline) respiratory exam Cardiovascular Function: Hemodynamically Stable Hydration Status: Adequately Hydrated Nausea & Vomiting: No Nausea or Vomiting Pain: Pt. Denies Any Pain Peripheral Nerve Block: Patient did not receive a nerve block
[2023-05-02 09:02] VITALS: BP 120/77; PULSE 81; RESP 20; TEMP 36.6; O2SAT 99
== END 2023-05-02 09:02 | disposition home or self-care (01) ==
LOC: SUR 06:59
PROVIDERS: PCP Nurse Practitioner Family; Visit Provider Ophthalmology
PROC: (CPT 66984; principal; 2023-05-02 08:30)
DX: H25.042 Posterior subcapsular polar age-related cataract, left eye (principal); H25.12 Age-related nuclear cataract, left eye
CPT/HCPCS: 66984; V2632

== ENCOUNTER 2023-05-15 14:32 | Outpatient (REF) | payer OTHER, SELFPAY ==
[2023-05-15 17:03] LABS: Bacteria Few HPF (Negative); C & S Indicated? Yes; Casts Negative LPF (Negative); Crystals Few Calcium Oxalate HPF (Negative); Epithelial Cells Few HPF (Negative); Mucus Negative (Negative)
== END 2023-05-15 14:33 | disposition home or self-care (01) ==
LOC: NCHCN 14:32
PROVIDERS: PCP Nurse Practitioner Family; Visit Provider Nurse Practitioner Family
DX: R31.9 Hematuria, unspecified (principal)
CPT/HCPCS: 81015; 87086

== ENCOUNTER 2023-06-04 11:15 | Outpatient (REF) | payer OTHER, SELFPAY ==
[2023-06-04 16:27] LABS: Bilirubin Negative (Negative); Blood Small (Negative); Clarity Clear (Clear); Glucose Negative (Negative); Ketones Negative (Negative); Leukocyte Esterase Negative (Negative); Nitrite Negative (Negative); Specific Gravity >= 1.030 (1.005-1.025); Urobilinogen 0.2 mg/dL (Up to 0.2)
[2023-06-04 17:19] LABS: Bacteria Rare HPF (Negative); C & S Indicated? No; Casts Negative LPF (Negative); Crystals Many Calcium Oxalate HPF (Negative); Epithelial Cells Rare HPF (Negative); Mucus Negative (Negative); Other Cells Rare Transitional (Negative)
== END 2023-06-04 11:16 | disposition home or self-care (01) ==
LOC: NCHCN 11:15
PROVIDERS: PCP Nurse Practitioner Family; Visit Provider Nurse Practitioner Family
DX: R31.9 Hematuria, unspecified (principal); R82.998 Other abnormal findings in urine
CPT/HCPCS: 81003; 81015

== ENCOUNTER 2023-06-18 15:33 | Outpatient (REF) | payer OTHER, SELFPAY ==
[2023-06-18 15:54] LABS: HCT 38.8 % (36.0-46.0); HGB 12.7 g/dL (11.2-15.7); MCH 28.4 pg (27.0-33.0); MCHC 32.7 % (32.0-36.0); MCV 87 fL (80-95); MPV 9.8 fL (8.0-11.0); Platelet Count 310 10^3/uL (130-400); RBC 4.47 10^6/uL (3.93-5.22); RDW 13.8 % (11.7-14.6); RDW-SD 43.3 fL; WBC 6.05 10^3/uL (4.4-10.8)
[2023-06-18 16:17] LABS: ALT 25 U/L (14-59); AST 18 U/L (15-37); Albumin 3.7 g/dL (3.4-5.0); Alkaline Phosphatase 59 U/L (46-116); Anion Gap 10.3 mmol/L (3-11); BUN 12 mg/dL (7-18); Bilirubin, Total 0.8 mg/dL (0.2-1.0); CO2 24.7 mmol/L (21.0-32.0); CREATININE 0.9 mg/dL (0.55-1.02); Calculated LDL 110 mg/dL (<100); Chloride 104 mmol/L (98-107); Cholesterol 197 mg/dL (<200); Glucose 117 mg/dL (74-106); HDL Cholesterol 52 mg/dL (40-60); Potassium 4.9 mmol/L (3.5-5.1); Sodium 139 mmol/L (136-145); Total Protein 7.6 g/dL (6.4-8.2); Triglyceride 178 mg/dL (<150)
== END 2023-06-18 15:34 | disposition home or self-care (01) ==
LOC: NCHCN 15:33
PROVIDERS: PCP Nurse Practitioner Family; Visit Provider Nurse Practitioner Family
DX: R31.9 Hematuria, unspecified (principal); E11.9 Type 2 diabetes mellitus without complications; E78.5 Hyperlipidemia, unspecified
CPT/HCPCS: 80053; 80061; 85027

== ENCOUNTER 2023-08-19 21:49 | Observation (INO) | payer OTHER, SELFPAY ==
[2023-08-19] VITALS (10 sets, daily range): BP systolic 191; BP diastolic 117; PULSE 90–118; RESP 18–21; TEMP 37; O2SAT 97–100
--- NOTE | 2023-08-19 21:45 | DI.CT_ITS ---
Exam(s) CT CHEST PE CTA EXAM: CT CHEST PE CTA CLINICAL HISTORY: eval PE. TECHNIQUE: Imaging Protocol: Axial CT angiography was performed with multi-slice acquisition and mu lti-planar reconstructions as well as axial, coronal and sagittal MIP reconstructions. CONTRAST MATERIAL: Intravenous: Omnipaque 350 Contrast volume:100 ml COMPARISON: No exams were available for comparison FINDINGS: Pulmonary Arteries: No evidence of filling defect to suggest pulmonary emboli. Tracheobronchial tree: Patent where visualized. Mediastinum and Alisa: No dominant adenopathy or fluid collection. Pulmonary parenchyma: No consolidation or dominant measurable mass. Pleura: No effusion or pneumothorax. Heart: The heart is not dilated. No coronary artery calcifications are seen. Trace pericardial fluid. . Aorta: Thoracic aorta non-dilated. No aneurysm. No dissection. Upper abdomen: Unremarkable. Bones: Unremarkable for age. Tubes, Catheters, and Lines: None Soft tissues: Unremarkable. IMPRESSION: No evidence of pulmonary embolism. Trace pericardial effusion. RADIATION DOSE DELIVERED: Total DLP DATA REPOSITORY: All CT scans at this facility are submitted to the National Radiology Data Registry (NRDR) Dose Index Registry (DIR) with the [employer] (A[employer]). RADIATION OPTIMIZATION: All CT scans at this facility use at least one of these dose optimization te chniques: automated exposure control; mA and/or kV adjustment per patient size (includes targeted exa ms where dose is matched to clinical indication); or iterative reconstruction.
--- NOTE | 2023-08-19 21:45 | RT.EKG_ITS ---
APPROVED REPORT Exam: Resting ECG Reason for Exam: tachy Patient Location: E HR:100 bpm ECG Measurements Heart Rate 100 AXIS OR 187 P 66 QRSd 83 QRS -17 QT 376 T 50 QTc 467 Conclusion Sinus rhythm PACs no prior for comparison
--- NOTE | 2023-08-19 22:01 | ED.GENADUL_ITS ---
Discharge Plan Disposition Patient Disposition: Admit to [facility] Discharge Details Chief Complaint: Palpitatns Clinical Impression: Left leg swelling, Atrial dysrhythmia, Hyperglycemia, PAC (premature atrial contraction), Tachycardia, Hypertension, Hypomagnesemia Primary Care Provider: Lisa Alcantara ED Provider: Philly Graham Home Meds and New Rx's Prescriptions: No Action losartan 25 mg tablet 25 mg PO DAILY aspirin [Adult Low Dose Aspirin] 81 mg tablet,delayed release (DR/EC) 81 mg PO DAILY multivitamin [Daily Multi-Vitamin] 1 EACH tablet 1 ea PO DAILY metformin 500 mg tablet 1,000 mg PO BID Medical Decision Making Emergent evaluation of cardiac dysrhythmia. Initial evaluation includes malignant dysrhythmia, electrolyte derangement, DVT, pulmonary embolism. EKG reviewed, she is in sinus rhythm with P waves however she is having multiple PACs. She has no history of dysrhythmia. She does take baby aspirin daily. Although the leg does appear large, she has no other symptoms or risk factors for DVT. Given the leg swelling and dysrhythmia, will get lab work and PE study and continue cardiac monitoring. 2330: Lab work reviewed. CBC without leukocytosis or significant anemia. She has hyperglycemia without evidence of DKA. Her magnesium is slightly low. Her troponin is negative. Her BNP is slightly elevated. I will replace her magnesium with IV medication. I have observed the patient on telemetry monitoring and her heart rate fluctuates significantly from the 80s to the low 110s. It still appears to be sinus rhythm, complicated by significant amount of PACs. Her CT scan was reviewed, she does have a small pericardial effusion, but no evidence of PE. Discussed with the hospitalist. Given her electrolyte derangement, dysrhythmia and pericardial effusion noted on CT scan, I would like to admit the patient for telemetry monitoring, echocardiogram in the morning. At that time would also get a lower extremity ultrasound to further delineate her lower extremity swelling. Medical Records Medical records reviewed: Yes I reviewed the patient's medical records. Lab Data Lab results reviewed: Yes I reviewed the patient's lab results. ECG Data Attestation: I personally reviewed and interpreted this ECG (s) as follows: Prior ECG tracings: not available for review Interpretation: Sinus rhythm rate 100, multiple PACs HPI General Date/Time Provider Initiated Documentation: 08/19/23 21:50 . Limitations to Documentation: no limitations . Information obtained by: patient . HPI Narrative: 57-year-old female with past medical history hypertension, hematuria presents for evaluation of left leg swelling. She reports that this evening she noted that her left leg was significantly swollen. She denies any pain. Denies any trauma. She reports that she did a home EKG on her Apple Watch and it reported to her that she was in atrial fibrillation. This is never happened before she has no history of cardiac dysrhythmia. She reports cataract surgery that required general anesthesia in April but otherwise does not smoke, no hormonal therapy, no prolonged immobilization. Mother had blood clots with cancer treatments. Related Data Home Medications Medication Instructions Recorded Confirmed multivitamin (Daily Multi-Vitamin 1 ea PO DAILY 03/25/17 08/19/23 tablet) aspirin 81 mg tablet,delayed 81 mg PO DAILY 02/20/23 08/19/23 release (Adult Low Dose Aspirin) losartan 25 mg tablet 25 mg PO DAILY 02/20/23 08/19/23 metformin 500 mg tablet 1,000 mg PO BID 02/20/23 08/19/23 Allergies Allergy/AdvReac Type Severity Reaction Status Date / Time penicillin V Allergy Intermediate Skin Rash Unverified 08/19/23 21:52 General Stated Complaint: Palpitatns CHELY: 3 PFSH All Active Problems (Updated 08/19/23 @ 23:26 by Howie Bermudez) HTN (hypertension), benign (Acute) Pericardial effusion (Acute) Supraventricular dysrhythmia (Acute) Constipation (Acute) Fatigue (Acute) Hematuria (Acute) Proteinuria (Acute) Phlebitis (Acute) Retinopathy (Acute) Lipoma of skin (Acute) Paresthesia (Acute) Hyperlipidemia (Acute) Edentulism, partial (Acute) Urinary stone (Acute) Screen for colon cancer (Acute) Medical History Cataract DM (diabetes mellitus) Candidiasis of vulva and vagina Surgical History Hx of section x 2 Colonoscopy - IV Sedation (~02/2023) Colonoscopy 04/2017 Cholecystectomy Biopsy, Soft Tissue (07/15/17) lipoma, right axilla Social History Smoking/Tobacco Use Status: Never Smoking risk assessment performed?: Yes Alcohol Intake: current Alcohol Intake frequency: holidays/special occasions only Alcohol type: wine Drug use: Never Substance use type: does not use Details: alcohol: months Housing: house Do you feel safe at home: Yes Do you feel safe in your relationship?: Yes Exam Narrative Exam Narrative: Review of Systems: All systems reviewed & are unremarkable except as noted in HPI and below: CONSTITUTIONAL: Alert and oriented Well-developed, no acute distress HEENT: NCAT EYES: PERRL, no conjunctival injection MOUTH Moist MM NECK: Symmetric, trachea midline, No thyromegaly THROAT oropharynx clear CVS: irregular, tachycardia Peripheral pulses 2+ and equal in all extremities Brisk capillary refill in all extremities. left LE larger compared to right, without pitting edema or tenderness RESP: Unlabored respiratory effort, Clear to auscultation bilaterally No wheezes rales or rhonchi GI: Soft, Nontender, Nondistended, No organomegaly MSK: Extremities with full range of motion, no deformity or TTP SKIN: Warm, Dry. No rashes or lesions. NEURO: No focal neurologic deficits. Course Vital Signs Vital signs: Vital Signs Temperature 37 C 08/19/23 21:54 Pulse 118 H 08/19/23 21:54 Respiratory Rate 21 08/19/23 21:54 Blood Pressure 191/117 H 08/19/23 21:54 Pulse Oximetry 100 08/19/23 21:54 Temperature 37 C 08/19/23 21:54 Temperature Source Oral 08/19/23 21:54 Pulse 118 H 08/19/23 21:54 Respiratory Rate 21 08/19/23 21:54 Blood Pressure 191/117 H 08/19/23 21:54 Blood Pressure Position Supine 08/19/23 21:54 Pulse Oximetry 100 08/19/23 21:54 Oxygen Delivery Method Room Air 08/19/23 21:54 Oxygen Flow Rate 0 08/19/23 21:54 Pain Level 1 08/19/23 21:54
[2023-08-19 22:14] LABS: Abs Immature Grans 0.02 10^3/uL (0.0-0.06); Absolute Basophil Count 0.04 10^3/uL (0.0-0.2); Absolute Eosinophil Count 0.32 10^3/uL (0.0-0.7); Absolute Monocyte Count 0.47 10^3/uL (0.1-0.8); Absolute Neutrophil Count 4.11 10^3/uL (1.2-6.7); Basophils % 0.5; Eosinophils % 4.3; HCT 35.3 % (36.0-46.0); HGB 11.9 g/dL (11.2-15.7); Immature Grans % 0.3; Lymphocytes % 32.6; MCH 28.2 pg (27.0-33.0); MCHC 33.7 % (32.0-36.0); MCV 84 fL (80-95); MPV 9.3 fL (8.0-11.0); Monocytes % 6.4; Neutrophils % 55.9; Platelet Count 285 10^3/uL (130-400); RBC 4.22 10^6/uL (3.93-5.22); RDW 13.4 % (11.7-14.6); RDW-SD 40.9 fL; WBC 7.36 10^3/uL (4.4-10.8)
[2023-08-19 22:30] LABS: ALT 22 U/L (14-59); AST 18 U/L (15-37); Albumin 3.4 g/dL (3.4-5.0); Alkaline Phosphatase 64 U/L (46-116); Anion Gap 11.6 mmol/L (3-11); BUN 16 mg/dL (7-18); Bilirubin, Total 0.8 mg/dL (0.2-1.0); CO2 26.4 mmol/L (21.0-32.0); Calcium 9.3 mg/dL (8.5-10.1); Chloride 102 mmol/L (98-107); Glucose 209 mg/dL (74-106); Magnesium 1.7 mg/dL (1.8-2.4); Potassium 3.7 mmol/L (3.5-5.1); Sodium 140 mmol/L (136-145); Total Protein 7.5 g/dL (6.4-8.2)
[2023-08-19 22:39] LABS: NT-proBNP 315 pg/mL (<300); TSH 3.25 uIU/mL (0.36-3.74); Troponin I < 50 ng/L (<or=60)
[2023-08-19] MEDS: Omnipaque 350 MG/ML 100 ML BTL IJ (22:48)
--- NOTE | 2023-08-19 23:09 | DI.VRAD_ITS ---
PROCEDURE INFORMATION: Exam: CTA Chest With Contrast Exam date and time: 08/19/2023 10:36 PM Age: 57 years old Clinical indication: Wheezing and other: Swelling TECHNIQUE: Imaging protocol: Computed tomographic angiography of the chest with contrast. Exam focused on the arteries. 3D rendering (Not supervised by radiologist): MIP and/or 3D reconstructed images were created by the technologist. Contrast material: OMNIPAQUE 350; Contrast volume: 100 ml; Contrast route: INTRAVENOUS (IV); COMPARISON: US CHEST ULTRASOUND 01/29/2017 2:36 PM FINDINGS: Pulmonary arteries: The pulmonary arteries are normal in caliber. No evidence of acute pulmonary embolism. Aorta: The aorta is normal without evidence of aneurysmal dilatation, dissection or occlusive disease. Lungs: There is no evidence of focal pulmonary consolidation. No evidence of pulmonary parenchymal inflammatory changes. There is no evidence of pulmonary masses. Pleural spaces: There is no evidence of pneumothorax. There are no pleural effusions present. Heart: There is a small pericardial effusion present. The cardiac structures are normal. The right ventricular to left ventricular ratio is normal measuring approximately 0.75. Coronary arteries: No evidence of significant coronary artery atherosclerotic plaque or calcification. Lymph nodes: There is no evidence of lymphadenopathy. Bones/joints: The spine, sternum, ribs, and pectoral girdles show no evidence of acute abnormality. Soft tissues: There are no soft tissue masses or fluid collections. The upper abdominal viscera are unremarkable. Other findings: The mediastinal structures are normal. IMPRESSION: 1. There is a small pericardial effusion present. 2. No evidence of acute pulmonary embolism. 3. Otherwise no definitive acute cardiopulmonary disease Dictated and Authenticated by: Zen Fonseca MD. Ordering:[facility] Santos Calabrese MD
--- NOTE | 2023-08-19 23:24 | HPE_ITS ---
Date of service: 08/19/23 Time of Service: 23:24 Assessment and Plan Assessment and plan (1) Supraventricular dysrhythmia: Start date: 08/19/23 Status: Acute Assessment and plan: This is a 57-year-old lady who had low extremity edema and her Apple Watch did showed atrial fibrillation which concerned her with question of clotting. She was evaluated in the ED and had minor abnormalities which but no evidence of PE and cardiac rhythm was mostly frequent PACs with no atrial fibrillation captured. Her CRP was elevated in the past and there was a small pericardial effusion on CT with CRP repeated and question of use of NSAIDs though this does not appear to be clinical pericarditis with no chest pain or significant EKG changes. Troponins will be trended as well. She will be admitted for cardiac monitoring with Lovenox for DVT prophylaxis awaiting echocardiogram and venous Doppler of left lower extremity in the morning. She had no palpitations or chest pain and has no history of CAD. She is a diabetic as a risk. She is a full code. (2) Hypomagnesemia: Start date: 08/19/23 Status: Acute Assessment and plan: Replete with IV magnesium and follow-up in the morning. This may be mostly's dietary with patient reason having GI symptoms on Ozempic which has been discontinued. She should consider long-term oral magnesium supplement. (3) Lower leg edema: Start date: 08/19/23 Status: Acute Assessment and plan: Sudden onset left lower extremity with need for venous Doppler to rule out DVT. Patient has had no trauma and is only slightly obese with diabetes. She had negative workup for PE. (4) Pericardial effusion: Start date: 08/19/23 Status: Acute Assessment and plan: Check CRP and if elevated consider NSAIDs with new onset supraventricular dysrhythmia. Echocardiogram in the morning. Cardiac exam was unrevealing for rubs or gallop but may have had a quiet systolic murmur over the left sternal border. (5) HTN (hypertension), benign: Status: Chronic Assessment and plan: Consider increasing losartan dose though patient states that she has whitecoat syndrome and her blood pressure did normalize when she was admitted to the floor. She did have her losartan dose at home the evening of admission. (6) DM (diabetes mellitus): Assessment and plan: Hold metformin and sliding scale coverage for hyperglycemia. Patient was previously on Ozempic and should reconsider GLP-1 agonist retrial with her last hemoglobin A1c above 10. Weight loss and consistent exercise would also be helpful. Qualifiers: Diabetes mellitus complication status: without complication Diabetes mellitus [facility] insulin use: without emt intermediate use Diabetes mellitus type: t ype 2 Qualified Code(s): E11.9 - Type 2 diabetes mellitus without complications History of Present Illness History of Present Illness Chief Complaint: Left lower extremity swelling with Apple Watch reportin atrial fibrillation Narrative: This is a 57-year-old female patient who was taking a bath the evening of admission and noticed that her left leg was swollen. She looked at her Apple Watch which stated that her heart rhythm was atrial fibrillation which concerned her. She googled the information and has some concerns about clotting. She had no chest pain, palpitations or shortness of breath and had no other edema though she did have varicose veins in that left leg this summer with some swelling. She recently has been on Ozempic but had to stop this because of GI upset and this may have caused her low magnesium seen in the ED. This was repleted with IV therapy. Patient remained asymptomatic throughout her evaluation with a mildly elevated BNP and anion gap not receiving fluids but eating and drinking well. She did not miss her dose of losartan in the evening though her blood pressure was slightly high. This did normalize without intervention. She does have a family history of thromboembolic events with her mother who was receiving cancer treatment. Her CT was negative for PE. She will require venous Doppler of the left leg because the swelling for evaluation. She also deserves an echocardiogram and will be observed overnight watching her rhythm. In the ED she did not have atrial fibrillation and she had a variable heart rate at times tachycardic but the patient was nervous. She mostly had frequent PACs. As stated her magnesium was low and repleted and will be followed up in the morning. Troponins were negative and will be trended. The patient is a full code. If she has a negative evaluation during his observation, she does deserve a 2- week Zio patch and cardiology follow-up to discuss cardiovascular risk control and to review echocardiogram. Review of Systems Narrative: 13 point review of systems otherwise unrevealing or stable. PFSH All Active Problems (Updated 08/19/23 @ 23:47 by Howie Bermudez) Hypomagnesemia (Acute) Lower leg edema (Acute) HTN (hypertension), benign (Chronic) Pericardial effusion (Acute) Supraventricular dysrhythmia (Acute) Constipation (Acute) Fatigue (Acute) Hematuria (Acute) Proteinuria (Acute) Phlebitis (Acute) Retinopathy (Acute) Lipoma of skin (Acute) Paresthesia (Acute) Hyperlipidemia (Acute) Edentulism, partial (Acute) Urinary stone (Acute) Screen for colon cancer (Acute) Medical History Cataract DM (diabetes mellitus) Candidiasis of vulva and vagina Surgical History Hx of section x 2 Colonoscopy - IV Sedation (~02/2023) Colonoscopy 04/2017 Cholecystectomy Biopsy, Soft Tissue (07/15/17) lipoma, right axilla Social History Smoking/Tobacco Use Status: Never Smoking risk assessment performed?: Yes Alcohol Intake: current Alcohol Intake frequency: holidays/special occasions only Alcohol type: wine Drug use: Never Substance use type: does not use Details: alcohol: months Housing: house Do you feel safe at home: Yes Do you feel safe in your relationship?: Yes Meds Allergies and Home Medications Allergies Allergy/AdvReac Type Severity Reaction Status Date / Time penicillin V Allergy Intermediate Skin Rash Unverified 08/19/23 21:52 Home Medications Medication Instructions Recorded Confirmed Type multivitamin (Daily Multi-Vitamin 1 ea PO DAILY 03/25/17 08/19/23 History tablet) aspirin 81 mg tablet,delayed 81 mg PO DAILY 02/20/23 08/19/23 History release (Adult Low Dose Aspirin) losartan 25 mg tablet 25 mg PO DAILY 02/20/23 08/20/23 History metformin 500 mg tablet 1,000 mg PO BID 02/20/23 08/19/23 History Exam Narrative Exam Narrative: General: Patient appears appropriate for age, moderately obese and short stature, alert and oriented x 3 and in no acute distress. HEENT: Normocephalic, eyes with pupils equal and react to light symmetrically, extraocular movement intact and sclera anicteric. Oropharynx with moist Koza and fair dentition. Neck: Supple without JVD. Back: Stooped posture without CVA tenderness. Lungs: Clear to auscultation percussion with no focalizing rales or rhonchi. Breast: Exam deferred. Heart: Irregular rhythm with normal rate, question quite systolic murmur left sternal border but no gallops appreciated. No rubs. Abdomen: Obese contour, soft nontender to palpation with no palpable hepatosplenomegaly. Genitalia/rectal: Exam deferred. Extremities: Trace edema left lower extremity with patient stated that it was more swollen at home prior to admission. Negative Homans' sign. No joint swelling. No grossly pitting edema, cyanosis or clubbing. Peripheral pulses intact. Skin: Normal color, warm and dry. Neuro: Cranial nerves II through XII gross intact, no focalizing motor deficits and no tremor. Psych: Normal affect and mood. No abnormal thought processes. Remote and recent memory grossly intact. Results Imaging Imaging Studies: Exam: CTA Chest With Contrast Exam date and time: 08/19/2023 10:36 PM Age: 57 years old Clinical indication: Wheezing and other: Swelling TECHNIQUE: Imaging protocol: Computed tomographic angiography of the chest with contrast. Exam focused on the arteries. 3D rendering (Not supervised by radiologist): MIP and/or 3D reconstructed images were created by the technologist. Contrast material: OMNIPAQUE 350; Contrast volume: 100 ml; Contrast route: INTRAVENOUS (IV); COMPARISON: US CHEST ULTRASOUND 01/29/2017 2:36 PM FINDINGS: Pulmonary arteries: The pulmonary arteries are normal in caliber. No evidence of acute pulmonary embolism. Aorta: The aorta is normal without evidence of aneurysmal dilatation, dissection or occlusive disease. Lungs: There is no evidence of focal pulmonary consolidation. No evidence of pulmonary parenchymal inflammatory changes. There is no evidence of pulmonary masses. Pleural spaces: There is no evidence of pneumothorax. There are no pleural effusions present. Heart: There is a small pericardial effusion present. The cardiac structures are normal. The right ventricular to left ventricular ratio is normal measuring approximately 0.75. Coronary arteries: No evidence of significant coronary artery atherosclerotic plaque or calcification. Lymph nodes: There is no evidence of lymphadenopathy. Bones/joints: The spine, sternum, ribs, and pectoral girdles show no evidence of acute abnormality. Soft tissues: There are no soft tissue masses or fluid collections. The upper abdominal viscera are unremarkable. Other findings: The mediastinal structures are normal. IMPRESSION: 1. There is a small pericardial effusion present. 2. No evidence of acute pulmonary embolism. 3. Otherwise no definitive acute cardiopulmonary disease Labs 08/19/23 22:04 08/19/23 22:04 Labs: Laboratory Results - last 24 hr 08/19/23 22:04 WBC 7.36 RBC 4.22 Hgb 11.9 Hct 35.3 L MCV 84 MCH 28.2 MCHC 33.7 RDW 13.4 Plt Count 285 MPV 9.3 Immature Gran % 0.3 Neutrophils % 55.9 Lymphocytes % 32.6 Monocytes % 6.4 Eosinophils % 4.3 Basophils % 0.5 Nucleated RBC % 0.0 Absolute Neutrophils 4.11 Absolute Lymphocytes 2.40 Absolute Monocytes 0.47 Absolute Eosinophils 0.32 Absolute Basophils 0.04 Sodium 140 Potassium 3.7 Chloride 102 Carbon Dioxide 26.4 Anion Gap 11.6 H BUN 16 Creatinine 1.0 Est GFR (CKD-EPI 2020) 65.30 Glucose 209 H Calcium 9.3 Magnesium 1.7 L Total Bilirubin 0.8 AST 18 ALT 22 Alkaline Phosphatase 64 Troponin I < 50 NT-Pro-B Natriuret Pep 315 H Total Protein 7.5 Albumin 3.4 TSH 3.25 Last Vital Signs Temp 37 C 08/19/23 21:54 Pulse 118 H 08/19/23 21:54 Resp 21 08/19/23 21:54 BP 191/117 H 08/19/23 21:54 Pulse Ox 100 08/19/23 21:54 Time Spent Time spent with Patient: >75 minutes Time was spent: preparing to see the patient(eg.review tests), obtaining and/or reviewing separately otained hiistory, ordering medications,tests, procedures, referring, communicating with other health career technical counselor, indepentently interpreting results and counseling the patient
[2023-08-20] VITALS (10 sets, daily range): BP systolic 126–145; BP diastolic 68–86; PULSE 79–91; RESP 16–21; TEMP 36.3–37.3; O2SAT 95–97
[2023-08-20] MEDS: MAGNESIUM SULFATE 2 GM/50 ML BAG IVPB (01:23)
[2023-08-20 06:51] LABS: HCT 37.4 % (36.0-46.0); HGB 12.5 g/dL (11.2-15.7); MCHC 33.4 % (32.0-36.0); MCV 84 fL (80-95); MPV 9.4 fL (8.0-11.0); Platelet Count 293 10^3/uL (130-400); RBC 4.47 10^6/uL (3.93-5.22); RDW 13.4 % (11.7-14.6); RDW-SD 41.1 fL
[2023-08-20 07:01] LABS: Prothrombin Time 9.9 sec (9.1-11.1)
[2023-08-20 07:22] LABS: Troponin I < 50 ng/L (<or=60)
[2023-08-20 07:29] LABS: ALT 20 U/L (14-59); AST 18 U/L (15-37); Albumin 3.4 g/dL (3.4-5.0); Alkaline Phosphatase 61 U/L (46-116); Anion Gap 10.8 mmol/L (3-11); BUN 12 mg/dL (7-18); Bilirubin, Total 0.7 mg/dL (0.2-1.0); C-Reactive Protein 0.27 mg/dL (0.0-0.3); CO2 24.2 mmol/L (21.0-32.0); CREATININE 0.9 mg/dL (0.55-1.02); Calcium 9.2 mg/dL (8.5-10.1); Chloride 105 mmol/L (98-107); Glucose 133 mg/dL (74-106); Magnesium 2.3 mg/dL (1.8-2.4); Sodium 140 mmol/L (136-145); TSH (W/Ref FT4) 2.25 uIU/mL (0.36-3.74); Total Protein 7.5 g/dL (6.4-8.2)
--- NOTE | 2023-08-20 08:00 | DI.US_ITS ---
Exam(s) US LOWER EXTREMITY VENOUS LT EXAM: US LOWER EXTREMITY VENOUS LT CLINICAL HISTORY: Edema left lower extremity with elevated BNP TECHNIQUE: Left lower extremity venous ultrasound performed using grayscale, color-flow, and spectra l Doppler analysis. COMPARISON: No exams were available for comparison FINDINGS: The left common femoral, femoral and popliteal veins demonstrate normal compressibility, augmentation , and color Doppler. The posterior tibial and peroneal veins are patent. The saphenofemoral junction is unremarkable. There is no evidence of a Tristan cyst. The soft tissues are unremarkable. IMPRESSION: No evidence of a left lower extremity DVT. DATA REPOSITORY:
--- NOTE | 2023-08-20 08:00 | RT.EKG_ITS ---
APPROVED REPORT Exam: Resting ECG Reason for Exam: palpitations, PAC's Patient Location: I HR:78 bpm ECG Measurements Heart Rate 78 AXIS MT 195 P 49 QRSd 89 QRS -18 QT 392 T 28 QTc 447 Conclusion Sinus rhythm...normal P axis, V-rate 50- 99 Probable left atrial enlargement...P >50mS, <-0.10mV V1 Borderline left axis deviation...QRS axis (-15,-29) Low voltage, precordial leads...precordial leads <1.0mV I have reviewed and interpreted ECG and agree with software generated interpretation.
[2023-08-20] MEDS: Enoxaparin 40 MG/0.4 ML SYR SC (08:46)
[2023-08-20] MEDS: Aspirin E.C. 81 MG TABEC PO (08:46)
[2023-08-20] MEDS: Multivitamin TAB 1 TAB PO (08:46)
--- NOTE | 2023-08-20 08:48 | PDOC.CMIN ---
Date of service: 08/20/23 Time of Service: 08:48 Care Management Initial Assmt Initial Assessment REASON FOR HOSPITALIZATION:: supraventricular arrhythmia PREVIOUS FUNCTIONAL STATUS/SOCIAL/FAMILY SUPPORTS:: Phyllis lives in [place], [place] with her Kamlesh ADVANCE DIRECTIVES:: none Has patient been provided with info about the portal/API?: Yes Did the patient sign up for the portal?: Yes CODE STATUS:: Full Code INSURANCE COVERAGE / FINANCIAL ISSUES:: [facility] PRIMARY CARE PHYSICIAN:: Lisa Alcantara POTENTIAL DISCHARGE NEEDS:: follow up with PCP and plan of care PATIENT/FAMILY EDUCATION NEEDS:: Review of discharge instructions, activity, limitations, follow up plan, discuss [employer] TRANSPORTATION:: via private vehicle with family PLAN:: Anticipate Phyllis will be discharged home with no new services when medically ready. She will follow up with her PCP and cardiology and discharger plan of care. CM will follow and continue to assess for discharge planning needs. PFSH All Active Problems (Updated 08/19/23 @ 23:47 by Howie Bermudez) Hypomagnesemia (Acute) Lower leg edema (Acute) HTN (hypertension), benign (Chronic) Pericardial effusion (Acute) Supraventricular dysrhythmia (Acute) Constipation (Acute) Fatigue (Acute) Hematuria (Acute) Proteinuria (Acute) Phlebitis (Acute) Retinopathy (Acute) Lipoma of skin (Acute) Paresthesia (Acute) Hyperlipidemia (Acute) Edentulism, partial (Acute) Urinary stone (Acute) Screen for colon cancer (Acute) Medical History Cataract DM (diabetes mellitus) Candidiasis of vulva and vagina Surgical History Hx of section x 2 Colonoscopy - IV Sedation (~02/2023) Colonoscopy 04/2017 Cholecystectomy Biopsy, Soft Tissue (07/15/17) lipoma, right axilla Social History Smoking/Tobacco Use Status: Never Smoking risk assessment performed?: Yes Alcohol Intake: current Alcohol Intake frequency: holidays/special occasions only Alcohol type: wine Drug use: Never Substance use type: does not use Details: alcohol: months Housing: house Do you feel safe at home: Yes Do you feel safe in your relationship?: Yes
[2023-08-20] MEDS: Normal Saline Flush 10 ML SYR IVP (08:49)
[2023-08-20 09:40] LABS: Lab Add On Test DONE
[2023-08-20 10:13] LABS: D-Dimer 772 ng/mlFEU (<500)
--- NOTE | 2023-08-20 12:40 | PHA.REVIEW2 ---
Pharmacy Admission Review Admission Clinical Review Admission Pharmacy Review: Hypomagnesemia (Acute) Lower leg edema (Acute) Pericardial effusion (Acute) Supraventricular dysrhythmia (Acute) penicillin V Allergy (Intermediate, Unverified 08/19/23 21:52) Skin Rash Resuscitation Status Full Code Height 5 ft 1 in Weight 75.8 kg Pharmacy Admission Review Renal Dosing Renal Dosing: BUN 12 mg/dL (7-18) 08/20/23 06:15 Creatinine 0.9 mg/dL (0.55-1.02) 08/20/23 06:15 Medications needing adjustments: Reviewed (CrCl 63.41 mL/min) Anticoagulation Anticoagulation: Hgb 12.5 g/dL (11.2-15.7) 08/20/23 06:15 Hct 37.4 % (36.0-46.0) 08/20/23 06:15 Plt Count 293 10^3/uL (130-400) 08/20/23 06:15 INR 1.0 (0.9-1.1) 08/20/23 06:15 Creatinine 0.9 mg/dL (0.55-1.02) 08/20/23 06:15 DVT Prophylaxis: Reviewed Medications: Enoxaparin (40mg q24h, per H+P may have DVT so could change to therapeutic) Relevant Labs Relevant Labs: Sodium 140 mmol/L (136-145) 08/20/23 06:15 Potassium 4.0 mmol/L (3.5-5.1) 08/20/23 06:15 Chloride 105 mmol/L (98-107) 08/20/23 06:15 Magnesium 2.3 mg/dL (1.8-2.4) 08/20/23 06:15 C-Reactive Protein 0.27 mg/dL (0.0-0.3) 08/20/23 06:15 Electrolytes, C-Reactive P, ESR: Reviewed DM Control DM Control: Reviewed Insulin Dosing, Diabetic Medication: Has SS insulin order, home metformin on hold. Finger stick glucose 133 [id number] Cardiac Review Cardiac Review: Troponin I Cancelled 08/20/23 15:00 NT-Pro-B Natriuret Pep 315 pg/mL (<300) H 08/19/23 22:04 BP, HR, EF%: Reviewed (BP 145/84, HR WNL ) QTc Review QTc: Reviewed (467 08/19/23) IV to PO Switch IV Medications: Reviewed Home Meds Home Med List reviewed: Reviewed Relevent Home Meds Not ordered & why?: Metformin on hold, has order for SS insulin. Current Meds Current Medication Order Review: Reviewed Pharmacy Antibiotic Review Relevant Labs: Relevant Labs 08/20/23 08/19/23 06:15 23:33 C-Reactive Protein 0.27 Cancelled
--- NOTE | 2023-08-20 14:30 | DSE_ITS ---
Date of service: 08/20/23 Time of Service: 14:30 DS: Diagnosis Discharge Diagnosis (1) Lower leg edema: Status: Acute Asessment and Plan: Patient has venous varicosities no evidence of DVT per ultrasound of her left leg (2) Atrial premature contractions: Status: Acute Asessment and Plan: Asymptomatic APCs were seen on EKG. Overnight telemetry did not show any atrial arrhythmias nor any atrial fibrillation. (3) Hypomagnesemia: Status: Acute Asessment and Plan: Hypomagnesemia of 1.7 was corrected to a level of 2.3. Patient was given information from up-to-date as well as from the [facility] about hypomagnesemia and treatment of the same. (4) Supraventricular dysrhythmia: Status: Ruled-out (5) Pericardial effusion: Status: Ruled-out Asessment and Plan: Small pericardial effusion was suggested by CT scan but ruled out by echo cardiogram which showed no pericardial effusion and showed normal LV and RV size and function and no valvular abnormalities. (6) HTN (hypertension), benign: Status: Chronic Asessment and Plan: No change in her current blood pressure management. She is advised to monitor blood pressure daily and follow-up with her primary care provider. It suggested that she incorporate foods higher in magnesium into her diet and reduce her sodium intake. (7) DM (diabetes mellitus): Asessment and Plan: No change in her diabetic management. She should continue to monitor blood sugars routinely and follow-up with her PCP (8) Varicose veins of both legs with edema: Status: Acute Asessment and Plan: Is recommend patient wear compression stockings over both calves to reduce edema particularly when she is participating in activity that requires prolonged period of sitting or standing on one place Discharge Plan Disposition Patient Disposition: Home Condition: Good Discharge Details Reason For Visit: Supraventricular dysrhythmia, LLE edema, Pericardi Admit Date/Time: 08/19/23 23:27 Admit Provider: Howie Bermudez Attending Provider: Howie Bermudez Primary Care Provider: Lisa Alcantara Hospital Course Hospital Course: 57-year-old female non-smoker history of hypertension and diabetes mellitus type 2 presented to the emergency department with acute on swelling of her left calf. Patient states she did a Google search of unilateral leg swelling and found that this is prevalent in DVTs. Her iPhone monitor her heart rate and suggested that she was in atrial fibrillation. She had no chest pain or pressure no dyspnea and no palpitations. She presented to the emergency department where she underwent a workup including routine labs including CBC and chemistry profile cardiac troponin levels and underwent imaging Including a CT scan of her chest that showed no pulmonary embolism but suggested trace pericardial effusion. Heart was nondilated and there was no aneurysm. EKG demonstrated normal sinus rhythm with occasional atrial premature contractions. Laboratory studies were remarkable for mildly decreased magnesium level 1.7 which was corrected. CBC was unremarkable. LFTs and renal function were normal. proBNP was minimally elevated at 315. Patient was admitted overnight for serial troponin levels and telemetry monitoring and to work her up for her left calf swelling. 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 She has venous varicosities on exam and is felt that the most likely cause of her leg edema was prolonged sitting and compression of her left leg in the setting of venous varicosities. Subsequent venous duplex scan of her left leg did not show any DVT. An echocardiogram was performed because of the trace pericardial effusion. Echocardiogram was normal. LV size and function was normal with an LVEF of 55 to 60% with no segmental wall motion abnormalities. RV size and function was normal and there was no valvular heart disease and no pericardial effusion. Patient felt well and had no symptoms of palpitations or chest pain or chest pressure nor any dyspnea and she was discharged in good condition. Home Meds and New Rx's Prescriptions: Continued losartan 25 mg tablet 25 mg PO DAILY aspirin [Adult Low Dose Aspirin] 81 mg tablet,delayed release (DR/EC) 81 mg PO DAILY multivitamin [Daily Multi-Vitamin] 1 EACH tablet 1 ea PO DAILY metformin 1,000 mg tablet 1,000 mg PO BID Patient Comments: TAKE ONE TABLET BY MOUTH TWICE A DAY Discharge Instructions Instructions: Leg Edema (ED), Hypomagnesemia (DC), Premature Atrial Contractions (GEN), Venous Insufficiency (DC) Additional Instructions: You were admitted to the hospital to evaluate acute left calf swelling and also to evaluate possible atrial dysrhythmia. You reported that your Apple watch suggested that you are in atrial fibrillation. Workup at the hospital included serial EKGs as well as lab work, echocardiogram (ultrasound of your heart), CT scan of the chest. Your labs were remarkable for mildly decreased magnesium level 1.7 (normal levels 1.8-2.4) you are given supplemental magnesium which brought your magnesium level up to 2.3. Your blood sugar was elevated at 209 but when repeated the next morning came down to 133. EKG Demonstrated normal sinus rhythm with occasional premature atrial contractions. Troponin levels were checked (these are heart muscle enzymes) and were found to be within normal limits indicating that there is no evidence for heart attack. CT imaging of the chest was performed to rule out a pulmonary embolism or aortic dissection and neither was seen. CT did suggest a trace of pericardial effusion however an echocardiogram was performed the next day and showed no evidence for pericardial effusion. CT findings were normal pericardial fluid. Furthermore your echocardiogram showed normal left and right ventricular function with no evidence for valvular abnormalities. Venous ultrasound of your leg did not show any deep vein thrombosis. There are many various causes for leg edema including chronic venous varicosities which you seem to have. Prolonged sitting on long car rides or prolonged sitting with her legs crossed can lead to leg edema. Furthermore standing in 1 place for prolonged period of time can lead to edema in your legs. It is recommended that you should wear support stockings whenever you are participating in an activity that requires prolonged period of sitting or standing. It is also recommend you avoid high salt foods which will cause water retention and leg edema. If you continue having leg edema I would see a vascular specialist to evaluate you for venous insufficiency. He denied any symptoms of palpitations and therefore I think your atrial premature contractions are not insignificant finding. Your Apple Watch may have been picking up the APCs and confusing it with atrial fibrillation. APCs can lead to heart beats that occur earlier in the cycle and can be confused with an irregular heart rhythm such as atrial fibrillation. APCs are more common in people who are experiencing high adrenergic state such as stress or increased caffeine or other stimulants. You should limit your caffeine intake, avoid nicotine which you have told me that you do not partake in and try to minimize your stress. It may be helpful to participate in meditation or some other form of relaxation to help with your stress. Should you experience symptomatic atrial premature contractions or premature ventricular contractions such as feelings of palpitations or rapid heart rate I would seek immediate medical attention and pursue having equipment monitor phototypesetting applied to diagnose any arrhythmias. Stand Alone Forms: Nursing Discharge Form Referrals: Lisa Alcantara [Primary Care Provider] - 09/03/23 8:40 am (needs follow up in the next week. if symptomatic palpitations occur then I would recommend holter and cardiology referral. No atrial fibrillation was seen during her period of monitoring in the hospital) Activity:: Activity as Tolerated Equipment/Supplies:: No Equipment Needed Diet:: Low Sodium Discharge Orders Discharge Orders: Discharge Order (Routine); Ordered 08/20/23 Ordered By: Huseyin Man DS: Summary Time Spent with Patient providing and/or coordinating discharge services: Less than 30 minutes Specific discharge activities: Interview/exam of patient; review of discharge instructions, completion of prescriptions/discharge instructions; discussion w/ nursing and CM; documentation of hospital visit Status at Discharge Functional status at discharge: independent ambulation Overall status at discharge: patient is back to baseline Mental Status: mental status grossly normal Speech and Movement: speech and movement normal Mood: congruent mood Affect: normal affect Exam Narrative Exam Narrative: Middle-aged white female alert and orient x 3 no acute distress denies chest pain or dyspnea Neck is supple no JVD normal carotid pulses no bruits No thyromegaly Lungs clear to auscultation Heart regular rate and rhythm no murmur rub or gallop Abdomen soft nondistended nontender normal bowel sounds no organomegaly no bruits no palpable masses Lower extremities 1+ edema of the left calf and pretibial area with venous varicosities over both legs. Left calf is soft nontender negative Homans' sign normal pedal pulses normal strength and range of motion. Psych Mental Status: mental status grossly normal Speech and Movement: speech and movement normal Mood: congruent mood Affect: normal affect DS: Data Vitals/I&O Vitals and I&O: Vital Signs Temperature 37.2 C 08/20/23 11:15 Temperature Source Tympanic 08/20/23 11:15 Pulse 79 08/20/23 11:15 Pulse Rhythm Regular 08/20/23 08:45 Pulse 89 08/20/23 00:20 Respiratory Rate 16 08/20/23 11:15 Respiratory Effort Normal, Non-Labored 08/20/23 08:45 Respiratory Depth Normal 08/20/23 08:45 Respiratory Pattern Normal 08/20/23 08:45 Blood Pressure 145/84 H 08/20/23 11:15 Blood Pressure Mean 89 08/20/23 00:32 Blood Pressure Position Supine 08/19/23 21:54 Pulse Oximetry 97 08/20/23 11:15 Oxygen Delivery Method Room Air 08/20/23 11:15 Oxygen Flow Rate 0 08/20/23 11:15 Pain Level 0 08/20/23 11:15 Intake & Output 08/19/23 08/20/23 08/20/23 23:59 11:59 23:59 Intake Total 600 / 600 Balance 600 / 600 Weight 73.1 kg 75.8 kg Intake: IV 60 / 60 Oral 540 / 540 Other: Urine Appearance Clear Data Completed and Pending Labs on day of discharge: Labs from last 24 hours 08/20/23 08/20/23 08/19/23 15:00 06:15 23:33 WBC 6.10 RBC 4.47 Hgb 12.5 Hct 37.4 MCV 84 MCH 28.0 MCHC 33.4 RDW 13.4 Plt Count 293 MPV 9.4 Immature Gran % Neutrophils % Lymphocytes % Monocytes % Eosinophils % Basophils % Nucleated RBC % Absolute Neutrophils Absolute Lymphocytes Absolute Monocytes Absolute Eosinophils Absolute Basophils PT 9.9 INR 1.0 D-Dimer 772 H Sodium 140 Potassium 4.0 Chloride 105 Carbon Dioxide 24.2 Anion Gap 10.8 BUN 12 Creatinine 0.9 Est GFR (CKD-EPI 2020) 74.10 Glucose 133 H Calcium 9.2 Magnesium 2.3 Total Bilirubin 0.7 AST 18 ALT 20 Alkaline Phosphatase 61 Troponin I Cancelled < 50 C-Reactive Protein 0.27 Cancelled NT-Pro-B Natriuret Pep Total Protein 7.5 Albumin 3.4 TSH 2.25 Add-On Test Request DONE 08/19/23 08/19/23 23:32 22:04 WBC 7.36 RBC 4.22 Hgb 11.9 Hct 35.3 L MCV 84 MCH 28.2 MCHC 33.7 RDW 13.4 Plt Count 285 MPV 9.3 Immature Gran % 0.3 Neutrophils % 55.9 Lymphocytes % 32.6 Monocytes % 6.4 Eosinophils % 4.3 Basophils % 0.5 Nucleated RBC % 0.0 Absolute Neutrophils 4.11 Absolute Lymphocytes 2.40 Absolute Monocytes 0.47 Absolute Eosinophils 0.32 Absolute Basophils 0.04 PT INR D-Dimer Sodium 140 Potassium 3.7 Chloride 102 Carbon Dioxide 26.4 Anion Gap 11.6 H BUN 16 Creatinine 1.0 Est GFR (CKD-EPI 2020) 65.30 Glucose 209 H Calcium 9.3 Magnesium 1.7 L Total Bilirubin 0.8 AST 18 ALT 22 Alkaline Phosphatase 64 Troponin I < 50 C-Reactive Protein NT-Pro-B Natriuret Pep 315 H Total Protein 7.5 Albumin 3.4 TSH Cancelled 3.25 Add-On Test Request PFSH All Active Problems (Updated 08/20/23 @ 14:58 by Huseyin Man MD) Varicose veins of both legs with edema (Acute) Atrial premature contractions (Acute) Hypomagnesemia (Acute) Lower leg edema (Acute) HTN (hypertension), benign (Chronic) Constipation (Acute) Fatigue (Acute) Hematuria (Acute) Proteinuria (Acute) Phlebitis (Acute) Retinopathy (Acute) Lipoma of skin (Acute) Paresthesia (Acute) Hyperlipidemia (Acute) Edentulism, partial (Acute) Urinary stone (Acute) Screen for colon cancer (Acute) Medical History Cataract DM (diabetes mellitus) Candidiasis of vulva and vagina Surgical History Hx of section x 2 Colonoscopy - IV Sedation (~02/2023) Colonoscopy 04/2017 Cholecystectomy Biopsy, Soft Tissue (07/15/17) lipoma, right axilla Social History Smoking/Tobacco Use Status: Never Smoking risk assessment performed?: Yes Alcohol Intake: current Alcohol Intake frequency: holidays/special occasions only Alcohol type: wine Drug use: Never Substance use type: does not use Details: alcohol: months Housing: house Do you feel safe at home: Yes Do you feel safe in your relationship?: Yes Time Spent with Patient Time Spent with Patient: <45 minutes Time was spent: preparing to see the patient(eg.review tests), referring, communicating with other health landcare facilitator, indepentently interpreting results, counseling the patient (and family including and daughter) and care coordination
--- NOTE | 2023-08-20 14:47 | CHAPLAIN ---
Phyllis was visiting with her and daughter and had just been told she is being discharged this afternoon so I had a brief visit with her and her family.
--- NOTE | 2023-08-20 16:28 | PDOC.CMPRO ---
Date of service: 08/20/23 Time of Service: 16:28 Care Management Progress Note Progress Note Text Progress Note Text: Phyllis presented to the ED last night when her Apple watch alerted her that she was in atrial fibrillation. She also had unilateral lower extremity swelling which caused her to be concerned about a possible blood clot. She was admitted overnight in OBS status and additional testing was done. Fortunately both afib and a DVT were ruled out and she was discharged home today. No new services were needed.
== END 2023-08-20 16:01 | disposition home or self-care (01) ==
LOC: ER 08-20 00:07 → MS 08-20 00:45
PROVIDERS: Internal Medicine; Admitting Provider Family Medicine; Emergency Provider Emergency Medicine; PCP Nurse Practitioner Family; Visit Provider Family Medicine
DX: I49.1 Atrial premature depolarization (principal); I83.893 Varicose veins of bilateral lower extremities with other complications; E83.42 Hypomagnesemia; I10 Essential (primary) hypertension; E11.9 Type 2 diabetes mellitus without complications; Z79.84 Long term (current) use of oral hypoglycemic drugs; Z79.899 Other long term (current) drug therapy
CPT/HCPCS: 00123; 36415; 36416; 71275; 80053; 82962; 85027; 93005; 96365; 96366; 96372; 99285; J1650; 83735; 83880; 84443; 84484; 85025; 85379; 85610; 86140; 93010; 93306; 93971; 99223; 99238; G0378; J3490

== ENCOUNTER 2023-11-03 11:04 | Outpatient (REF) | payer OTHER, SELFPAY ==
[2023-11-03 11:36] LABS: Bilirubin Negative (Negative); Blood Large (Negative); Clarity Sl Cloudy (Clear); Glucose Negative (Negative); Ketones Negative (Negative); Leukocyte Esterase Trace (Negative); Nitrite Negative (Negative); Specific Gravity 1.025 (1.005-1.025); Urobilinogen 0.2 mg/dL (Up to 0.2); pH 5.5 (5-8)
[2023-11-03 11:42] LABS: Bacteria Rare HPF (Negative); Casts Negative LPF (Negative); Crystals Negative HPF (Negative); Epithelial Cells Rare HPF (Negative); Mucus Trace (Negative); RBC 20-50 HPF (0-2)
[2023-11-03 11:43] LABS: C & S Indicated? No
== END 2023-11-03 11:05 | disposition home or self-care (01) ==
LOC: LBN 11:04
PROVIDERS: PCP Nurse Practitioner Family; Visit Provider Nurse Practitioner Gerontology
DX: R31.9 Hematuria, unspecified (principal)
CPT/HCPCS: 81003; 81015

== ENCOUNTER 2023-12-03 11:14 | Outpatient (REF) | payer OTHER, SELFPAY ==
[2023-12-03 14:59] LABS: COMMENT (LAB VIEW ONLY) 40.59 mg/dL
[2023-12-03 15:01] LABS: Microalb ug/mg Crea 290.5 ug/mg Cr
== END 2023-12-03 11:15 | disposition home or self-care (01) ==
LOC: NCHCN 11:14
PROVIDERS: PCP Nurse Practitioner Family; Visit Provider Nurse Practitioner Family
DX: E11.9 Type 2 diabetes mellitus without complications (principal)
CPT/HCPCS: 82043; 82570

== ENCOUNTER 2023-12-28 16:00 | Emergency (ER) | payer OTHER, SELFPAY ==
[2023-12-28 16:04] VITALS: BP 189/82; PULSE 85; RESP 14; O2SAT 100
--- NOTE | 2023-12-28 16:30 | W.ED.GENAD ---
Discharge Plan Disposition Patient Disposition: Home Discharge Details Clinical Impression: Closed head injury Primary Care Provider: Lisa Alcantara ED Provider: Stewart Oconnor Home Meds and New Rx's Prescriptions: No Action losartan 25 mg tablet 25 mg PO DAILY aspirin [Adult Low Dose Aspirin] 81 mg tablet,delayed release (DR/EC) 81 mg PO DAILY glipizide 5 mg tablet 5 mg PO DAILY magnesium 200 mg tablet 200 mg PO DAILY estradiol 0.01 % (0.1 mg/gram) cream 1 g vaginal DIRECTED Qty: 60 3RF Rx Instructions: Apply a pea sized amount vaginally nightly for 2 weeks, then reduce to 2 times per week multivitamin [Daily Multi-Vitamin] 1 EACH tablet 1 ea PO DAILY metformin 1,000 mg tablet 1,000 mg PO BID Patient Comments: TAKE ONE TABLET BY MOUTH TWICE A DAY Discharge Instructions Instructions: Head Injury (ED) Additional Instructions: Please continue to monitor symptoms and return immediately for any new or significant worsening of condition including altered mental status, neurological abnormalities, severe headache. Otherwise stay well-hydrated and feel free to take [id number] pain medication as needed for discomfort. Feel free to return to the emergency department for any new or significant worsening of symptoms otherwise follow-up with primary care provider as needed Referrals: Lisa Alcantara [Primary Care Provider] - Discharge Data Discharge Date/Time-TO BE ENTERED AT DEPARTURE: 12/28/23 17:53 HPI General Mode of arrival: ambulatory. Date/Time Provider Initiated Documentation: 12/28/23 16:08. Limitations to Documentation: no limitations. Information obtained by: patient and RN notes reviewed. History of Present Illness 58 year old F presents to the emergency department with the chief complaint of fall/ head injury, described as mild and moderate, and is localized to the head. Patient neck. Patient started experiencing this minute(s) (30) and it has been constant. No relieving factors improve symptom(s), No exacerbating factors reported . Patient notes no other symptoms.. Patient did receive the following treatments prior to arrival, none Related Data Home Medications Medication Instructions Recorded Confirmed multivitamin (Daily Multi-Vitamin 1 ea PO DAILY 03/25/17 12/28/23 tablet) aspirin 81 mg tablet,delayed 81 mg PO DAILY 02/20/23 12/28/23 release (Adult Low Dose Aspirin) losartan 25 mg tablet 25 mg PO DAILY 02/20/23 12/28/23 metformin 1,000 mg tablet 1,000 mg PO BID 08/20/23 12/28/23 estradiol 0.01% (0.1 mg/gram) 1 g vaginal DIRECTED #60 grams 11/03/23 12/28/23 vaginal cream glipizide 5 mg tablet 5 mg PO DAILY 11/03/23 12/28/23 magnesium 200 mg tablet 200 mg PO DAILY 11/03/23 12/28/23 Previous Rx's Medication Instructions Recorded estradiol 0.01% (0.1 mg/gram) 1 g vaginal DIRECTED #60 grams 11/03/23 vaginal cream Allergies Allergy/AdvReac Type Severity Reaction Status Date / Time penicillin V Allergy Intermediate Skin Rash Unverified 12/28/23 16:07 General Stated Complaint: HeadInjury CHELY: 4 Review of Systems Constitutional Constitutional: Reports headache(s) and Denies malaise Eyes Eyes: Denies change in vision ENT Ears, Nose, Mouth, and Throat: Denies facial pain, Reports headache(s), Reports neck pain and Denies disequilibrium Cardiovascular Cardiovascular: Denies syncope Gastrointestinal Gastrointestinal: Denies nausea and Denies vomiting Musculoskeletal Musculoskeletal: Denies back pain, Reports neck pain and Denies numbness Integumentary/Breasts Skin/Breast: Denies wounds Neurologic Neurologic: Reports as per HPI, Denies confusion, Denies syncope, Reports headache(s), Denies lack of coordination, Denies localized weakness, Denies numbness, Denies sensory deficit, Denies paresthesias and Denies disequilibrium Psychiatric Psychiatric: Denies confusion Exam Const General: cooperative, healthy appearing, no acute distress and well groomed Orientation: alert, awake and oriented x3 HENMT Head: normal to inspection Ears: hearing grossly normal bilaterally and TM's normal bilaterally Mouth: oral mucosae normal and moist mucous membranes Throat: posterior oropharynx normal Eyes Visual Junior: normal visual junior by confrontation Alignment and Position: alignment normal Periorbital: periorbital findings normal Eyelids: eyelids normal Sclera: sclerae normal Cornea: corneas normal Pupils: PERRL EOM: EOM intact bilaterally Neck Neck: normal visual inspection, full ROM and no meningeal signs Resp Effort & Inspection: normal respiratory effort and able to speak in complete sentences Auscultation: clear to auscultation bilaterally Cardio Rate: regular rate Rhythm: regular rhythm Heart Sounds: S1 normal and S2 normal Neuro General: patient alert, patient awake, patient oriented x3, gait normal, tone normal, moves all extremities, CN's II-XI intact bilaterally and not confused Cognition: normal cognition Speech: speech normal Motor: muscle tone normal throughout, strength 5/5 throughout, no pronator drift, no movement abnormalities noted and no fasciculations Sensory Exam: no sensory deficits noted Coordination: [id number] test normal and Does not sway with eyes open Course Vital Signs Vital signs: Vital Signs Pulse 85 12/28/23 16:04 Respiratory Rate 14 12/28/23 16:04 Blood Pressure 189/82 H 12/28/23 16:04 Pulse Oximetry 100 12/28/23 16:04 Pulse 85 12/28/23 16:04 Respiratory Rate 14 12/28/23 16:04 Respiratory Effort Normal, Non-Labored 12/28/23 16:06 Blood Pressure 189/82 H 12/28/23 16:04 Blood Pressure Position Sitting 12/28/23 16:04 Pulse Oximetry 100 12/28/23 16:04 Oxygen Delivery Method Room Air 12/28/23 16:04 Oxygen Flow Rate 0 12/28/23 16:04 Pain Level 7 12/28/23 16:04 Medical Decision Making Patient presenting to the emergency department for chief complaint of fall with head injury. Patient was sitting on a hammock chair when the chair broke. She tried to avoid falling as she was holding an infant but in the attempts she did hit the back occipital aspect of her head on a plywood bench. Patient denies any vision change, syncope, vomiting, states soft tissue neck pain but no spinal discomfort, no numbness tingling, denies all other injury or trauma. Patient states that she prophylactically takes a baby aspirin otherwise is not on any blood thinners, no other significant contributing past medical history. Physical exam shows a small contusion to the right posterior occipital region consistent with injury otherwise neurological exam is unremarkable, no midline tenderness to the neck, noncontributory exam. Discussed with patient negative [place] head CT rule and reassuring exam that I did not feel that CT imaging was necessary at this point given low suspicion of need of neurosurgical intervention. Shared decision-making was utilized to treat patient with acetaminophen and reassess after observation. After greater than 1 hour of observation neurological exam was performed and patient actually states improvement of headache and no neurological dysfunction was found on exam. Will discharge patient with close monitoring by significant other and return and follow-up precautions discussed. After discussion of diagnosis and plan of care patient and significant other has no further needs, questions, or concerns and states clear understanding to return to the emergency department for any worsening symptoms. This documentation was generated using [employer] system, please disregard any oddities of phrase or misspellings. Quality:SDOH Health Related Social Needs: No Data to Display PFSH All Active Problems (Updated 12/28/23 @ 17:41 by Stewart Oconnor NP) Closed head injury (Acute) Vaginal dryness (Acute) Varicose veins of both legs with edema (Acute) Atrial premature contractions (Acute) Lower leg edema (Acute) HTN (hypertension), benign (Chronic) Constipation (Acute) Fatigue (Acute) Hematuria (Acute) Proteinuria (Acute) Phlebitis (Acute) Retinopathy (Acute) Lipoma of skin (Acute) Paresthesia (Acute) Hyperlipidemia (Acute) Edentulism, partial (Acute) Urinary stone (Acute) Screen for colon cancer (Acute) Medical History Cataract DM (diabetes mellitus) Candidiasis of vulva and vagina Surgical History Hx of section x 2 Colonoscopy - IV Sedation (~02/2023) Colonoscopy 04/2017 Cholecystectomy Biopsy, Soft Tissue (07/15/17) lipoma, right axilla Social History Smoking/Tobacco Use Status: Never Smoking risk assessment performed?: Yes Alcohol Intake: current Alcohol Intake frequency: holidays/special occasions only Alcohol type: wine Drug use: Never Substance use type: does not use Details: alcohol: months Housing: house Do you feel safe at home: Yes Do you feel safe in your relationship?: Yes
[2023-12-28] MEDS: Acetaminophen 500 MG TAB 1000 MG PO (16:33)
== END 2023-12-28 17:53 | disposition home or self-care (01) ==
PROVIDERS: Emergency Provider Nurse Practitioner Family; PCP Nurse Practitioner Family
DX: S09.8XXA Other specified injuries of head, initial encounter (principal); E11.9 Type 2 diabetes mellitus without complications; I10 Essential (primary) hypertension; E78.5 Hyperlipidemia, unspecified; Z79.84 Long term (current) use of oral hypoglycemic drugs; Z79.82 Long term (current) use of aspirin; W07.XXXA Fall from chair, initial encounter; Y93.89 Activity, other specified; Y92.89 Other specified places as the place of occurrence of the external cause
CPT/HCPCS: 99283

== ENCOUNTER 2024-02-10 19:15 | Outpatient (REF) | payer OTHER, SELFPAY ==
[2024-02-10 16:58] LABS: Bilirubin Negative (Negative); Blood Large (Negative); Clarity Sl Cloudy (Clear); Glucose Negative (Negative); Ketones Trace mg/dL (Negative); Leukocyte Esterase Negative (Negative); Nitrite Negative (Negative); Specific Gravity 1.025 (1.005-1.025); Urobilinogen 0.2 mg/dL (Up to 0.2); pH 6.5 (5-8)
[2024-02-10 17:04] LABS: Bacteria Few HPF (Negative); C & S Indicated? No; Casts Negative LPF (Negative); Crystals Negative HPF (Negative); Epithelial Cells Few HPF (Negative); Mucus Trace (Negative)
== END 2024-02-10 19:16 | disposition home or self-care (01) ==
LOC: LBN 19:15
PROVIDERS: PCP Nurse Practitioner Family; Visit Provider Nurse Practitioner Gerontology
DX: R31.9 Hematuria, unspecified (principal)
CPT/HCPCS: 81003; 81015

== ENCOUNTER 2024-03-05 13:25 | Outpatient (REF) | payer OTHER, SELFPAY ==
[2024-03-05 15:20] LABS: ESR 32 mm/hr (0-30)
[2024-03-05 22:54] LABS: CRP, High Sensitivity 5.19 mg/L (See Note); Rheumatoid Factor 10.4 IU/mL (<12.0)
== END 2024-03-05 13:26 | disposition home or self-care (01) ==
LOC: NCHCN 13:25
PROVIDERS: PCP Nurse Practitioner Family; Visit Provider Nurse Practitioner Family
DX: E11.9 Type 2 diabetes mellitus without complications (principal); M25.50 Pain in unspecified joint; R31.29 Other microscopic hematuria; R70.0 Elevated erythrocyte sedimentation rate
CPT/HCPCS: 85652; 86141; 82565; 83036; 86431

== ENCOUNTER 2024-03-22 07:03 | Day surgery (SDC) | payer OTHER, SELFPAY ==
[2024-03-22] VITALS (13 sets, daily range): BP systolic 131–165; BP diastolic 49–73; PULSE 78–91; RESP 15–27; TEMP 35.9–36.6; O2SAT 94–100; BMI 36.5
[2024-03-22] MEDS: Lactated Ringers 1,000 ML 80 ML IV (07:54)
[2024-03-22] MEDS: CIPROFLOXACIN 400 MG/200 ML BAG 200 MG IVPB (07:55)
--- NOTE | 2024-03-22 07:59 | ANES.PREOP_ITS ---
General Info Date of Service Date Performed: 03/22/24 Height: 5 ft 1 in Weight: 87.6 kg Body Mass Index (BMI): 36.5 Surgical Procedure: Operation Date: 03/22/24 08:55 Proposed Procedure Side Surgeon p Cystoscopy/Laser/Retrograde/Ureteroscopy/Stone Manipulation/? Stent Right Catalino Marcum MD Meds Allergies and Home Medications Allergies Allergy/AdvReac Type Severity Reaction Status Date / Time penicillin V Allergy Intermediate Skin Rash Verified 03/22/24 07:37 Home Medication ?Medication ?Instructions ?Recorded multivitamin (Daily Multi-Vitamin 1 ea PO DAILY 03/25/17 tablet) aspirin 81 mg tablet,delayed 81 mg PO DAILY 02/20/23 release (Adult Low Dose Aspirin) losartan 25 mg tablet 25 mg PO DAILY 02/20/23 metformin 1,000 mg tablet 1,000 mg PO BID 08/20/23 glipizide 5 mg tablet 5 mg PO DAILY 11/03/23 magnesium 200 mg tablet 200 mg PO DAILY 11/03/23 Current Visit Medications: Current Medications Generic Name Dose Route Start Last Admin Trade Name Gris PRN Reason Stop Dose Admin Ringer's Solution 1,000 mls @ 80 mls/hr 03/22/24 06:00 IV 04/18/24 23:59 INFUSION DAIN Ciprofloxacin 400 mg in 200 mls @ 200 mls/hr 03/22/24 06:00 Cipro I.V. IVPB 03/22/24 23:59 PREOP DAIN IV Miscellaneous Supplies 1 each 03/22/24 06:00 Iv Access IV 04/18/24 23:59 DIRECTED DAIN Sodium Chloride 0 ml 03/22/24 06:00 Normal Saline Flush 10 Ml Syr IV 04/18/24 23:59 PRN PRN Sodium Chloride 0 ml 03/22/24 06:00 Normal Saline 10 Ml Vial IJ 04/18/24 23:59 DIRECTED PRN Sterile Water 0 ml 03/22/24 06:00 Water,Injection,Sterile 10 Ml Vial IJ 04/18/24 23:59 DIRECTED PRN PFSH Active Problems Active Problems: Problem Status Onset Code Kidney stone Chronic N20.0 Vaginal dryness Acute N89.8 Varicose veins of both legs with edema Acute I83.893 Atrial premature contractions Acute I49.1 Lower leg edema Acute R60.0 HTN (hypertension), benign Chronic I10 Constipation Acute K59.00 Fatigue Acute R53.83 Hematuria Acute R31.9 Proteinuria Acute R80.9 Phlebitis Acute I80.9 Retinopathy Acute H35.00 Lipoma of skin Acute D17.30 Paresthesia Acute R20.2 Hyperlipidemia Acute E78.5 Edentulism, partial Acute K08.409 Urinary stone Acute N20.9 Posterior subcapsular age-related cataract of left eye Resolved H25.042 Nuclear age-related cataract, left eye Resolved H25.12 Cortical age-related cataract, right eye Resolved H25.011 Screen for colon cancer Acute Z12.11 Medical History Medical History Cataract DM (diabetes mellitus) Candidiasis of vulva and vagina Medical History Comments:: second c section, spinal went to lungs hard time breathing Surgical History Surgical History Hx of section x 2 Colonoscopy - IV Sedation (~02/2023) Colonoscopy 04/2017 Cholecystectomy Biopsy, Soft Tissue (07/15/17) lipoma, right axilla Tobacco Smoking/Tobacco Use Status: Never Alcohol Alcohol Intake: current Alcohol intake frequency: holidays/special occasions only Alcohol type: wine Substance Use Substance use: Never Substance use type: does not use Vital Signs and Lab Results Vital Signs Most Recent Vital Signs in EMR: Most Recent Vital Signs Temp Pulse Resp BP Pulse Ox 36.5 C 87 20 165/73 H 100 03/22/24 07:39 03/22/24 07:39 03/22/24 07:39 03/22/24 07:39 03/22/24 07:39 Point of Care Results Point of Care Results: Finger Stick Blood Glucose 191 03/22/24 07:25 Lab Results Blood Type / Crossmatch: No Data to Display Complete Blood Count: 2 No Data to Display Complete Metabolic Panel: Creatinine 1.0 mg/dL (0.55-1.02) 03/05/24 08:50 Est GFR (CKD-EPI 2020) 64.90 (mL/min/1.73m2) 03/05/24 08:50 Hemoglobin A1c 7.0 % (<5.7) H 03/05/24 08:50 Liver Function Panel: No Data to Display Coagulation Panel: No Data to Display Cardiac Panel: No Data to Display Arterial Blood Gas: No Data to Display Venous Blood Gas: No Data to Display Pancreas Panel: No Data to Display Thyroid Panel: No Data to Display Infectious Disease: No Data to Display Blood Cultures: No Data to Display Toxicology Panel: No Data to Display Imaging and Studies Imaging and Studies Study information below may be from another EMR and interpreted by another provider. Please see original notes in EMR for more complete details. EKG Summary: DATE/TIME OF SERVICE: 08/20/23 1119 : 1965 PERFORMING LOCATION: [place] APPROVED REPORT Exam: Resting ECG Reason for Exam: palpitations, PAC's Patient Location: I HR:78 bpm ECG Measurements Heart Rate 78 AXIS HI 195 P 49 QRSd 89 QRS -18 QT 392 T28 QTc 447 Conclusion Sinus rhythm...normal P axis, V-rate 50- 99 Probable left atrial enlargement...P >50mS, <-0.10mV V1 Borderline left axis deviation...QRS axis (-15,-29) Low voltage, precordial leads...precordial leads <1.0mV Echocardiogram Summary: 08/20/2023: EF 55-60%, normal valves Anesthesia Assessment and Plan Anesthesia History Personal History: No History of Anesthesia Complications Family History: No Family History of Anesthesia Complications Exercise Tolerance Exercise Tolerance: Metabolic Equivalents>4 Pertinent Negatives Pertinent Negatives: No Symptoms of GERD, No Major Cardiovascular Symptoms or Complaints, No Major Pulmonary Symptoms or Complaints and No History of CVA/TIA Cardiac & Pulmonary Exam Cardiac Exam: Normal S1/S2 Heart Sounds Pulmonary Exam: Clear Bilateral Breath Sounds Implantable Cardiac Device Does patient have a Pacemaker or an ICD?: No Airway Exam Known Difficult Airway: No Mallampati Class: 2 Mouth Opening: Normal (> 3cm) Thyromental Distance: Greater than 3 cm Neck Range of Motion: Full ROM Neck Circumference: Normal Teeth Condition: Normal Dentition and Removable Dentures/Plates Lower ASA Classification ASA Score: ASA 2 Emergency Case?: No NPO Status NPO Status: NPO Clears >2 hours, Solids >8 hours Anesthesia Plan Resuscitation Status: Full Code Anesthesia Technique: General Anesthesia Airway Planned: Endotracheal Tube Monitors Used: Standard Monitors Preoperative Comments:: Pt. States she did vomit during last colonoscopy. Also woke up with Gerd symptoms last night, none today.
--- NOTE | 2024-03-22 08:30 | HPE_ITS ---
Date of service: 03/22/24 Time of Service: 08:30 Assessment and Plan Assessment and plan (1) Kidney stone: Status: Chronic Assessment and plan: Her right-sided kidney stone is in the renal pelvis and is quite large. We will perform cystoscopy and holmium laser lithotripsy of the stone. Given the size of the stone, it would not surprise me if we need a staged procedure to render her stone free. History of Present Illness History of Present Illness Chief Complaint: Right kidney stone Narrative: This is a 58-year-old woman who initially presented with gross hematuria. The gross hematuria resolved, but she had persistent microscopic hematuria. She had a CT urogram which demonstrated a rather large stone in the right renal pelvis and a smaller stone in the right lower pole. She presents for cystoscopy to complete her hematuria workup along with ureteroscopy and holmium laser lithotripsy to address her large renal pelvic stone. She is no longer seeing any gross hematuria. She does have occasional right- sided flank pain. Review of Systems Narrative: No fevers or chills Cataract. No dysphasia Diabetes. No thyroid dysfunction No shortness of breath, cough or hemoptysis No chest pain or palpitations No nausea, vomiting, hepatitis, ulcers, jaundice No seizures, strokes or peripheral neuropathy No bleeding disorders or anemia Arthralgia. No gout PFSH All Active Problems Kidney stone (Chronic) Vaginal dryness (Acute) Varicose veins of both legs with edema (Acute) Atrial premature contractions (Acute) Lower leg edema (Acute) HTN (hypertension), benign (Chronic) Constipation (Acute) Fatigue (Acute) Hematuria (Acute) Proteinuria (Acute) Phlebitis (Acute) Retinopathy (Acute) Lipoma of skin (Acute) Paresthesia (Acute) Hyperlipidemia (Acute) Edentulism, partial (Acute) Urinary stone (Acute) Screen for colon cancer (Acute) Medical History Cataract DM (diabetes mellitus) Candidiasis of vulva and vagina Surgical History Hx of section x 2 Colonoscopy - IV Sedation (~02/2023) Colonoscopy 04/2017 Cholecystectomy Biopsy, Soft Tissue (07/15/17) lipoma, right axilla Social History Smoking/Tobacco Use Status: Never Smoking risk assessment performed?: Yes Alcohol Intake: current Alcohol Intake frequency: holidays/special occasions only Alcohol type: wine Drug use: Never Substance use type: does not use Housing: house Do you feel safe at home: Yes Do you feel safe in your relationship?: Yes Meds Allergies and Home Medications Allergies Allergy/AdvReac Type Severity Reaction Status Date / Time penicillin V Allergy Intermediate Skin Rash Verified 03/22/24 07:37 Home Medications ?Medication ?Instructions ?Recorded ?Confirmed ?Type multivitamin (Daily Multi-Vitamin 1 ea PO DAILY 03/25/17 03/22/24 History tablet) aspirin 81 mg tablet,delayed 81 mg PO DAILY 02/20/23 03/19/24 History release (Adult Low Dose Aspirin) losartan 25 mg tablet 25 mg PO DAILY 02/20/23 03/22/24 History metformin 1,000 mg tablet 1,000 mg PO BID 08/20/23 03/22/24 History glipizide 5 mg tablet 5 mg PO DAILY 11/03/23 03/22/24 History magnesium 200 mg tablet 200 mg PO DAILY 11/03/23 03/19/24 History Exam Const General: cooperative Neck Neck: supple Resp Effort & Inspection: normal respiratory effort Auscultation: clear to auscultation bilaterally Cardio Rate: regular rate Rhythm: regular rhythm GI Inspection: obesity Palpation: soft and no masses Neuro General: patient alert, patient awake and patient oriented x3 Results Last Vital Signs Temp 36.5 C 03/22/24 07:39 Pulse 87 03/22/24 07:39 Resp 20 03/22/24 07:39 BP 165/73 H 03/22/24 07:39 Pulse Ox 100 03/22/24 07:39 Time Spent Time spent with Patient: <40 minutes Time was spent: other
[2024-03-22] MEDS: Omnipaque 300 MG/ML 50 ML BTL (09:43)
[2024-03-22] MEDS: Lidocaine 2% Jelly 11 ML SYR (09:44)
--- NOTE | 2024-03-22 10:27 | DI.RAD_ITS ---
Exam(s) XR RETROGRADE IN OR EXAM: XR RETROGRADE IN OR CLINICAL HISTORY: right-sided kidney stone. TECHNIQUE: Fluoroscopy was provided for the referring physician for guidance with performing pain re trograde procedure. COMPARISON: CT CT ABDOMEN PELVIS WO/W from 03/08/2024 FINDINGS: Hard copy images show placement of a right ureteral stent. Please see procedure note for details. Fluoro time: 20 seconds seconds RADIATION DOSE DELIVERED: Ka,r=7.24 mGy
--- NOTE | 2024-03-22 10:27 | W.PM.DSUDISC ---
Date of service: 03/22/24 Time of Service: 10:28 Discharge Plan Disposition Patient Disposition: Home Condition: Stable Discharge Details Reason For Visit: ureteroscopy Attending Provider: Catalino Marcum Primary Care Provider: Lisa Alcantara Home Meds and New Rx's Prescriptions: New tramadol 50 mg tablet 50 mg PO Q6H PRNQty: 20 0RF Rx Instructions: may take with ibuprofen and tylenol oxybutynin chloride 5 mg tablet 5 mg PO Q8H PRN (Reason: bladder spasms) Qty: 20 0RF No Action losartan 25 mg tablet 25 mg PO DAILY aspirin [Adult Low Dose Aspirin] 81 mg tablet,delayed release (DR/EC) 81 mg PO DAILY glipizide 5 mg tablet 5 mg PO DAILY magnesium 200 mg tablet 200 mg PO DAILY multivitamin [Daily Multi-Vitamin] 1 EACH tablet 1 ea PO DAILY metformin 1,000 mg tablet 1,000 mg PO BID Patient Comments: TAKE ONE TABLET BY MOUTH TWICE A DAY Discharge Instructions Additional Instructions: no need to strain urine my office will contact patient to arrange followup cystoscopy with stent removal and ureteroscopy to remove any remaining fragments Activity:: Activity as Tolerated Shower/Bathe:: 24 hours Diet:: As Tolerated Discharge Orders Discharge Orders: Discharge Order (Routine); Ordered 03/22/24 Ordered By: Catalino Marcum DS: Diagnosis Discharge Diagnosis (1) Kidney stone: Status: Chronic
--- NOTE | 2024-03-22 10:32 | W.PM.OP ---
Date of service: 03/22/24 Time of Service: 10:32 Operative Note Operative Note DATE OF PROCEDURE: 03/22/24 PRE-OP DIAGNOSIS: right renal stone POST-OP DIAGNOSIS: same PROCEDURE: cystoscopy with right retrograde pyelogram, right ureteroscopy with holmium laser lithotripsy, extraction of stone fragments, insert right ureteral stent SURGEON: Catalino Marcum ANESTHESIA TYPE: Local By Surgeon and General LMA/ETT Refer to Anesthesia Record ESTIMATED BLOOD LOSS: 5 PATHOLOGY: other (stones for chemical analysis) COMPLICATIONS: None Patient was transported to: PACU Implants: 6 maltese by 22 to 30 cm right ureteral stent Indications: This is a 58-year-old woman who was initially seen with gross hematuria. The gross hematuria resolved, but microscopic hematuria persisted. She was evaluated with imaging studies and found to have a large stone in the right renal pelvis. She presents for cystoscopy to complete her hematuria workup followed by ureteroscopy and stone treatment. Findings: No tumor within the bladder Large stone in the right renal pelvis Procedure Description: The patient was given preoperative antibiotics and brought to the operating room on 03/22/2024. After successful induction of general anesthesia, she was placed in the dorsal lithotomy position. Her genitalia was prepped and draped. 2% Xylocaine jelly was instilled into the urethra to act as a local anesthetic. The 22 Malaysian rigid cystoscope was passed through the urethra into the bladder. The bladder was inspected using both the 30 and a 70 degree lens. Both ureteral orifices appeared normal with no blood coming from either side. The remainder of the bladder was smooth-walled with no papillary or nodular lesions. There did appear to be some extrinsic compression of the bladder presumably related to her known calcified uterine fibroid. We cannulated the right ureteral orifice with a 5 Malaysian access catheter. We injected Omnipaque through the access catheter under fluoroscopic guidance. A large radiopaque filling defect was seen in the renal pelvis. I passed a guidewire through the lumen of the access catheter and removed the catheter. I then passed a dual-lumen catheter over the wire and positioned a second wire. We chose one of the wires as a working wire and the other as a safety wire. We removed the dual lumen catheter and passed a ureteral access sheath over the working wire. The sheath was advanced until the tip was seen in the proximal ureter. I passed a flexible ureteroscope through the lumen of the access sheath and advanced the scope up to the renal pelvis. A large stone was seen in the pelvis. I treated the stone with a 272 ?m holmium laser fiber. We used a combination of dusting settings along with fragmentation settings. The large stone fragments that were produced were grasped in 0 tip stone basket and removed in their entirety. While a large amount of stone was removed, toward the end of the procedure, visibility became more challenging and we elected to place a ureteral stent and make a plan to return visit to the operating room to remove any residual stone fragments. We removed the access sheath and passed a 6 Malaysian variable length stent over the safety wire. The stent was positioned such that the proximal end was curled in the renal pelvis and the distal end was curled within the bladder. The positioning of the stent was confirmed both fluoroscopically and cystoscopically. All stone fragments that were removed were sent to pathology for chemical analysis. The patient tolerated this procedure well with no complications.
[2024-03-22] MEDS: Phenazopyridine 200 MG TAB PO (11:33)
--- NOTE | 2024-03-22 11:55 | W.ANESPOSTOP ---
Postoperative Evaluation Date, Time and Location Date Performed: 03/22/24 Time Performed: 11:55 Patient Location: Day Surgery Unit Vital Signs Most Recent Imported Vital Signs: Most Recent Vital Signs Temp Pulse Resp BP Pulse Ox 36.3 C L 78 20 157/70 H 98 03/22/24 11:30 03/22/24 11:30 03/22/24 11:30 03/22/24 11:30 03/22/24 11:30 Pain Score Most Recent Pain Score: Most Recent Pain Score Pain Level 0 03/22/24 11:30 Assessment Mental Status: Awake (Alert & Oriented to Patient Baseline) Airway and Respiratory Function: Patent airway with normal (patient baseline) respiratory exam Cardiovascular Function: Hemodynamically Stable Hydration Status: Adequately Hydrated Nausea & Vomiting: No Nausea or Vomiting Pain: Pt. Denies Any Pain Peripheral Nerve Block: Patient did not receive a nerve block Postoperative Comments:: Advised patient to see PCP and begin Famotidine 10mg BID for reflux. She wakes up at night frequently due to GERD, has vomited during anesthesia withoput aspiration and today still had 100-150 ml residual green gastric contents suctioned during procedure.
[2024-03-31 15:04] LABS: Source: Right Kidney
== END 2024-03-22 12:10 | disposition home or self-care (01) ==
PROVIDERS: PCP Nurse Practitioner Family; Visit Provider Urology
PROC: (CPT 52356; principal; 2024-03-22 08:45)
DX: N20.0 Calculus of kidney (principal); E11.9 Type 2 diabetes mellitus without complications; Z79.84 Long term (current) use of oral hypoglycemic drugs; I10 Essential (primary) hypertension; E78.5 Hyperlipidemia, unspecified
CPT/HCPCS: 52356; 74420; 82365; J0330; J0744; J1100; J1885; J2001; J2250; J2405; J2704; Q9967

== ENCOUNTER 2024-04-05 07:13 | Day surgery (SDC) | payer OTHER, SELFPAY ==
[2024-04-05] VITALS (16 sets, daily range): BP systolic 96–149; BP diastolic 40–61; PULSE 65–83; RESP 15–25; TEMP 36.2–36.6; O2SAT 93–100; BMI 35.7
[2024-04-05] MEDS: CIPROFLOXACIN 400 MG/200 ML BAG 200 MG IVPB (07:56)
[2024-04-05] MEDS: Lactated Ringers 1,000 ML 80 ML IV (07:58)
--- NOTE | 2024-04-05 08:05 | W.ANESPRE ---
General Info Date of Service Date Performed: 04/05/24 Height: 5 ft 1 in Weight: 85.8 kg Body Mass Index (BMI): 35.7 Surgical Procedure: Operation Date: 04/05/24 08:40 Proposed Procedure Side Surgeon p Cystoscopy/Ureteroscopy/Stent Removal/Extraction of Stone Fragments Right Catalino Marcum MD Meds Allergies and Home Medications Allergies Allergy/AdvReac Type Severity Reaction Status Date / Time penicillin V Allergy Intermediate Skin Rash Verified 04/05/24 07:23 Home Medication ?Medication ?Instructions ?Recorded multivitamin (Daily Multi-Vitamin 1 ea PO DAILY 03/25/17 tablet) aspirin 81 mg tablet,delayed 81 mg PO DAILY 02/20/23 release (Adult Low Dose Aspirin) losartan 25 mg tablet 25 mg PO DAILY 02/20/23 metformin 1,000 mg tablet 1,000 mg PO BID 08/20/23 glipizide 5 mg tablet 5 mg PO DAILY 11/03/23 magnesium 200 mg tablet 200 mg PO DAILY 11/03/23 oxybutynin chloride 5 mg tablet 5 mg PO Q8H PRN bladder spasms #20 03/22/24 tabs Current Visit Medications: Current Medications Generic Name Dose Route Start Last Admin Trade Name Freq PRN Reason Stop Dose Admin Ringer's Solution 1,000 mls @ 80 mls/hr 04/05/24 06:00 04/05/24 07:58 IV 04/05/24 23:59 80 mls/hr INFUSION DAIN Administration Ciprofloxacin 400 mg in 200 mls @ 200 mls/hr 04/05/24 06:00 04/05/24 07:56 Cipro I.V. IVPB 04/05/24 23:59 200 mls/hr PREOP DAIN Administration IV Miscellaneous Supplies 1 each 04/05/24 06:00 Iv Access IV 04/05/24 23:59 DIRECTED DAIN Sodium Chloride 0 ml 04/05/24 06:00 Normal Saline Flush 10 Ml Syr IV 04/05/24 23:59 PRN PRN Sodium Chloride 0 ml 04/05/24 06:00 Normal Saline 10 Ml Vial IJ 04/05/24 23:59 DIRECTED PRN Sterile Water 0 ml 04/05/24 06:00 Water,Injection,Sterile 10 Ml Vial IJ 04/05/24 23:59 DIRECTED PRN PFSH Active Problems Active Problems: Problem Status Onset Code Kidney stone Chronic N20.0 Vaginal dryness Acute N89.8 Varicose veins of both legs with edema Acute I83.893 Atrial premature contractions Acute I49.1 Lower leg edema Acute R60.0 HTN (hypertension), benign Chronic I10 Constipation Acute K59.00 Fatigue Acute R53.83 Hematuria Acute R31.9 Proteinuria Acute R80.9 Phlebitis Acute I80.9 Retinopathy Acute H35.00 Lipoma of skin Acute D17.30 Paresthesia Acute R20.2 Hyperlipidemia Acute E78.5 Edentulism, partial Acute K08.409 Urinary stone Acute N20.9 Posterior subcapsular age-related cataract of left eye Resolved H25.042 Nuclear age-related cataract, left eye Resolved H25.12 Cortical age-related cataract, right eye Resolved H25.011 Screen for colon cancer Acute Z12.11 Medical History Medical History At risk for aspiration Wakes from sleep with GERD, vomiting episode under anesthesia during colonoscopy with natural airway. Cataract DM (diabetes mellitus) Candidiasis of vulva and vagina Medical History Comments:: Wakes from sleep with GERD, vomiting episode under anesthesia during colonoscopy with natural airway. Surgical History Surgical History Hx of section x 2 Colonoscopy - IV Sedation (~02/2023) Colonoscopy 04/2017 Cholecystectomy Biopsy, Soft Tissue (07/15/17) lipoma, right axilla Tobacco Smoking/Tobacco Use Status: Never Alcohol Alcohol Intake: current Alcohol intake frequency: holidays/special occasions only Alcohol type: wine Substance Use Substance use: Never Substance use type: does not use Vital Signs and Lab Results Vital Signs Most Recent Vital Signs in EMR: Most Recent Vital Signs Temp Pulse Resp BP Pulse Ox 36.5 C 83 16 149/61 H 100 04/05/24 07:29 04/05/24 07:29 04/05/24 07:29 04/05/24 07:29 04/05/24 07:29 Point of Care Results Point of Care Results: Finger Stick Blood Glucose 152 04/05/24 07:40 Lab Results Blood Type / Crossmatch: No Data to Display Complete Blood Count: No Data to Display Complete Metabolic Panel: No Data to Display Liver Function Panel: No Data to Display Coagulation Panel: No Data to Display Cardiac Panel: No Data to Display Arterial Blood Gas: No Data to Display Venous Blood Gas: No Data to Display Pancreas Panel: No Data to Display Thyroid Panel: No Data to Display Infectious Disease: No Data to Display Blood Cultures: No Data to Display Toxicology Panel: No Data to Display Imaging and Studies Imaging and Studies Study information below may be from another EMR and interpreted by another provider. Please see original notes in EMR for more complete details. EKG Summary: DATE/TIME OF SERVICE: 08/20/23 1119 : 1965 PERFORMING LOCATION: [place] APPROVED REPORT Exam: Resting ECG Reason for Exam: palpitations, PAC's Patient Location: I HR:78 bpm ECG Measurements Heart Rate 78 AXIS OH 195 P 49 QRSd 89 QRS -18 QT 392 T28 QTc 447 Conclusion Sinus rhythm...normal P axis, V-rate 50- 99 Probable left atrial enlargement...P >50mS, <-0.10mV V1 Borderline left axis deviation...QRS axis (-15,-29) Low voltage, precordial leads...precordial leads <1.0mV Echocardiogram Summary: 08/20/2023: EF 55-60%, normal valves Anesthesia Assessment and Plan Anesthesia History Personal History: Other (vomited during colonoscopy) Family History: No Family History of Anesthesia Complications Exercise Tolerance Exercise Tolerance: Metabolic Equivalents>4 Pertinent Negatives Pertinent Negatives: No Major Cardiovascular Symptoms or Complaints and No Major Pulmonary Symptoms or Complaints Cardiac & Pulmonary Exam Cardiac Exam: Normal S1/S2 Heart Sounds Pulmonary Exam: Clear Bilateral Breath Sounds Cardiac and Pulmonary Comment:: Continues with GERD symptoms even with Pepcid use. Implantable Cardiac Device Does patient have a Pacemaker or an ICD?: No Airway Exam Known Difficult Airway: No Mallampati Class: 2 Mouth Opening: Normal (> 3cm) Thyromental Distance: Greater than 3 cm Neck Range of Motion: Full ROM Neck Circumference: Normal Teeth Condition: Normal Dentition and Removable Dentures/Plates Lower ASA Classification ASA Score: ASA 2 Emergency Case?: No NPO Status NPO Status: NPO Clears >2 hours, Solids >8 hours Anesthesia Plan Resuscitation Status: Full Code Anesthesia Technique: General Anesthesia Airway Planned: Endotracheal Tube Monitors Used: Standard Monitors
--- NOTE | 2024-04-05 08:26 | W.PM.HP.N ---
Date of service: 04/05/24 Time of Service: 08:26 Assessment and Plan Assessment and plan (1) Kidney stone: Status: Chronic Assessment and plan: We will plan on doing ureteroscopy with extraction of any residual stone fragments that are present. History of Present Illness History of Present Illness Chief Complaint: Right kidney stone Narrative: This is a 58-year-old woman who has a history of a large right kidney stone. She was treated with ureteroscopy and holmium laser lithotripsy. We extracted multiple stone fragments in the chemistry has shown 100% calcium oxalate monohydrate. We were not sure her all stone fragments had been dealt with, so we placed a ureteral stent and we planned a staged ureteroscopy. She comes back now for repeat ureteroscopy and extraction of any residual stone fragments. She has some urinary frequency but no gross hematuria, fever or chills. Review of Systems Narrative: No fevers or chills Cataract. No dysphasia Diabetes. No thyroid dysfunction No shortness of breath, cough or hemoptysis No chest pain or palpitations No nausea, vomiting, hepatitis, ulcers, jaundice No seizures, strokes or peripheral neuropathy No bleeding disorders or anemia Arthralgia. No gout PFSH All Active Problems Kidney stone (Chronic) Vaginal dryness (Acute) Varicose veins of both legs with edema (Acute) Atrial premature contractions (Acute) Lower leg edema (Acute) HTN (hypertension), benign (Chronic) Constipation (Acute) Fatigue (Acute) Hematuria (Acute) Proteinuria (Acute) Phlebitis (Acute) Retinopathy (Acute) Lipoma of skin (Acute) Paresthesia (Acute) Hyperlipidemia (Acute) Edentulism, partial (Acute) Urinary stone (Acute) Screen for colon cancer (Acute) Medical History At risk for aspiration Wakes from sleep with GERD, vomiting episode under anesthesia during colonoscopy with natural airway. Cataract DM (diabetes mellitus) Candidiasis of vulva and vagina Surgical History Hx of section x 2 Colonoscopy - IV Sedation (~02/2023) Colonoscopy 04/2017 Cholecystectomy Biopsy, Soft Tissue (07/15/17) lipoma, right axilla Social History Smoking/Tobacco Use Status: Never Smoking risk assessment performed?: Yes Alcohol Intake: current Alcohol Intake frequency: holidays/special occasions only Alcohol type: wine Drug use: Never Substance use type: does not use Housing: house Additional Social history: unable to assess privately Meds Allergies and Home Medications Allergies Allergy/AdvReac Type Severity Reaction Status Date / Time penicillin V Allergy Intermediate Skin Rash Verified 04/05/24 07:23 Home Medications ?Medication ?Instructions ?Recorded ?Confirmed ?Type multivitamin (Daily Multi-Vitamin 1 ea PO DAILY 03/25/17 04/05/24 History tablet) aspirin 81 mg tablet,delayed 81 mg PO DAILY 02/20/23 04/02/24 History release (Adult Low Dose Aspirin) losartan 25 mg tablet 25 mg PO DAILY 02/20/23 04/05/24 History metformin 1,000 mg tablet 1,000 mg PO BID 08/20/23 04/05/24 History glipizide 5 mg tablet 5 mg PO DAILY 11/03/23 04/05/24 History magnesium 200 mg tablet 200 mg PO DAILY 11/03/23 04/05/24 History oxybutynin chloride 5 mg tablet 5 mg PO Q8H PRN bladder spasms #20 03/22/24 04/05/24 Rx tabs Exam Const General: cooperative and comfortable Resp Effort & Inspection: normal respiratory effort Auscultation: clear to auscultation bilaterally Cardio Rate: regular rate Rhythm: regular rhythm GI Palpation: soft and no masses Neuro General: patient alert, patient awake and patient oriented x3 Results Last Vital Signs Temp 36.5 C 04/05/24 07:29 Pulse 83 04/05/24 07:29 Resp 16 04/05/24 07:29 BP 149/61 H 04/05/24 07:29 Pulse Ox 100 04/05/24 07:29 Time Spent Time spent with Patient: <40 minutes Time was spent: other
[2024-04-05] MEDS: Lidocaine 2% Jelly 6 ML SYR (09:24)
[2024-04-05] MEDS: Omnipaque 300 MG/ML 50 ML BTL (09:56)
--- NOTE | 2024-04-05 10:04 | DI.RAD_ITS ---
Exam(s) XR RETROGRADE IN OR EXAM: RAD/XR Retrograde in OR CLINICAL HISTORY: Kidney Stone TECHNIQUE: 2D and realtime digital imaging was performed. CONTRAST MATERIAL: Refer to procedure report. COMPARISON: CT CT ABDOMEN PELVIS WO/W from 03/08/2024 FINDINGS: Fluoroscopy was provided for Dr. Marcum during the performance of a retrograde evaluation of the bren[place] l collecting system. Please refer to the procedure report for complete details. Ka,r=10.3 mGy IMPRESSION: RADIATION DOSE DELIVERED: 0.0 0.0 0
--- NOTE | 2024-04-05 10:05 | W.PM.DSUDISC ---
Date of service: 04/05/24 Time of Service: 10:05 Discharge Plan Disposition Patient Disposition: Home Discharge Details Reason For Visit: ureteroscopy Attending Provider: Catalino Marcum Primary Care Provider: Lisa Alcantara Home Meds and New Rx's Prescriptions: No Action losartan 25 mg tablet 25 mg PO DAILY aspirin [Adult Low Dose Aspirin] 81 mg tablet,delayed release (DR/EC) 81 mg PO DAILY glipizide 5 mg tablet 5 mg PO DAILY Patient Comments: I only take 2.5 now magnesium 200 mg tablet 200 mg PO DAILY multivitamin [Daily Multi-Vitamin] 1 EACH tablet 1 ea PO DAILY oxybutynin chloride 5 mg tablet 5 mg PO Q8H PRN (Reason: bladder spasms) Qty: 20 0RF metformin 1,000 mg tablet 1,000 mg PO BID Patient Comments: TAKE ONE TABLET BY MOUTH TWICE A DAY Discharge Instructions Additional Instructions: no need to strain urine followup 2 to 3 days for stent removal - pt has string on end of stent followup appt with me 6 to 8 weeks for point of care renal ultrasound Discharge Orders Discharge Orders: Discharge Order (Routine); Ordered 04/05/24 Ordered By: Catalino Marcum DS: Diagnosis Discharge Diagnosis (1) Kidney stone: Status: Chronic
--- NOTE | 2024-04-05 10:09 | ROE_ITS ---
Date of service: 04/05/24 Time of Service: 10:09 Operative Note Operative Note DATE OF PROCEDURE: 04/05/24 PRE-OP DIAGNOSIS: right kidney stone POST-OP DIAGNOSIS: same PROCEDURE: cystoscopy, remove right ureteral stent, right retrograde pyelogram, right flexible ureteroscopy, extraction of stone fragments, insert right ureteral stent SURGEON: Catalino Marcum ANESTHESIA TYPE: Local By Surgeon and General LMA/ETT Refer to Anesthesia Record ESTIMATED BLOOD LOSS: 5 PATHOLOGY: other (stones for chemical analysis) COMPLICATIONS: None Patient was transported to: PACU Patient's condition: stable Implants: 4.8 [place] by 22 to 30 cm right ureteral stent Indications: This is a 58-year-old woman who has a history of a large right renal stone. She was treated with flexible ureteroscopy and holmium laser lithotripsy of her stone. Her stone fragments have shown 100% calcium oxalate monohydrate. At the completion of her initial ureteroscopy, we had not cleared all significant stone fragments, so we placed a ureteral stent and made plans to return to the OR for a staged ureteroscopy. She comes in today to have her stent removed and to have ureteroscopy and stone extraction. We will have the holmium laser available just in case any stone fragments are too large to remove. Findings: fragments in mid and lower pole calyces Procedure Description: The patient was brought to the operating room on 04/05/2024. She was given preoperative IV antibiotics. After successful induction of general anesthesia, she was placed in the dorsal lithotomy position. Her genitalia was prepped and draped. 2% Xylocaine jelly was instilled into the urethra to act as a local anesthetic. A 22 [place] rigid cystoscope was passed through the urethra into the bladder. The bladder was inspected with a 30 degree lens. The left ureteral orifice appeared normal. The right orifice had a stent seen protruding. No stone particles were seen within the bladder. The stent was grasped with an alligator forceps and brought out to the level of the urethral meatus. A guidewire was then advanced through the lumen of the stent and the stent was removed. We then utilized fluoroscopy and passed a dual-lumen catheter over the wire. Through the second lumen, we injected Omnipaque in order to outline the renal calyces. I then passed a second wire and removed the dual-lumen catheter. I chose one of the wires as a working wire and the other is a safety wire. I then passed the ureteral access sheath over the working wire leaving a safety wire in place. We passed the flexible ureteroscope through the access sheath and inspected each of the calyces. In the midpole calyces, a few small stone fragments were identified. Larger fragments were seen in the lower pole calyces. These fragments were grasped and the 0 tip stone basket and removed. In addition to the stone particles, organized clot was identified in the lower pole calyces. Once all significant stone burden had been removed, we removed the access sheath and ureteroscope. A 4.8 [place] variable length stent was advanced over the safety wire. The stent was positioned such that the proximal end was curled in the lower pole calyx and the distal end was curled within the bladder. The safety string was left in place brought through the patient's urethral meatus. The end of this safety string was tucked into the patient's vaginal cavity.
[2024-04-05] MEDS: Oxybutynin 5 MG TAB PO (10:45)
[2024-04-05] MEDS: Phenazopyridine 200 MG TAB PO (10:45)
--- NOTE | 2024-04-05 11:22 | W.ANESPOSTOP ---
Postoperative Evaluation Date, Time and Location Date Performed: 04/05/24 Time Performed: 10:36 Patient Location: Day Surgery Unit Vital Signs Most Recent Imported Vital Signs: Most Recent Vital Signs Temp Pulse Resp BP Pulse Ox 36.6 C 67 19 99/44 L 93 04/05/24 10:33 04/05/24 10:21 04/05/24 10:25 04/05/24 10:21 04/05/24 10:25 Pain Score Most Recent Pain Score: Most Recent Pain Score Pain Level 0 04/05/24 10:33 Assessment Mental Status: Awake (Alert & Oriented to Patient Baseline) Airway and Respiratory Function: Patent airway with normal (patient baseline) respiratory exam Cardiovascular Function: Hemodynamically Stable Hydration Status: Adequately Hydrated Nausea & Vomiting: No Nausea or Vomiting Pain: Pain is tolerable per patient (bladder cramping) Peripheral Nerve Block: Patient did not receive a nerve block
[2024-04-14 12:05] LABS: Source: Right Kidney
== END 2024-04-05 12:00 | disposition home or self-care (01) ==
PROVIDERS: PCP Nurse Practitioner Family; Visit Provider Urology
PROC: (CPT 52352; principal; 2024-04-05 08:30)
DX: N20.0 Calculus of kidney (principal); E11.9 Type 2 diabetes mellitus without complications; E78.5 Hyperlipidemia, unspecified; I10 Essential (primary) hypertension
CPT/HCPCS: 52352; 52332; 76000; 74420; 82365; J0744; J1100; J1885; J2001; J2405; J2704; Q9967

== ENCOUNTER 2024-09-09 16:52 | Outpatient (REF) | payer OTHER, SELFPAY ==
[2024-09-09 15:32] LABS: HCT 37.8 % (36.0-46.0); HGB 12.4 g/dL (11.2-15.7); MCH 28.2 pg (27.0-33.0); MCHC 32.8 % (32.0-36.0); MCV 86 fL (80-95); MPV 9.9 fL (8.0-11.0); Platelet Count 289 10^3/uL (130-400); RBC 4.39 10^6/uL (3.93-5.22); RDW 13.8 % (11.7-14.6); RDW-SD 43.1 fL; WBC 5.53 10^3/uL (4.4-10.8)
[2024-09-09 16:08] LABS: ALT 25 U/L (14-59); AST 19 U/L (15-37); Alkaline Phosphatase 72 U/L (46-116); Anion Gap 11.3 mmol/L (3-11); BUN 20 mg/dL (7-18); Bilirubin, Total 1.29 mg/dL (0.2-1.0); Calcium 9.4 mg/dL (8.5-10.1); Calculated LDL 130 mg/dL (<100); Chloride 105 mmol/L (98-107); Cholesterol 219 mg/dL (<200); Estimated GFR 64.49 (mL/min/1.73m2); Glucose 117 mg/dL (74-106); HDL Cholesterol 61 mg/dL (40-60); Potassium 4.6 mmol/L (3.5-5.1); Sodium 141 mmol/L (136-145); Total Protein 7.7 g/dL (6.4-8.2); Triglyceride 140 mg/dL (<150)
[2024-09-09 16:55] LABS: CO2 22.6 mmol/L (21.0-32.0)
[2024-09-09 23:26] LABS: CA 125 14 U/mL (<30)
== END 2024-09-09 16:53 | disposition home or self-care (01) ==
LOC: NCHCN 16:52
PROVIDERS: PCP Nurse Practitioner Family; Visit Provider Nurse Practitioner Family
DX: D25.9 Leiomyoma of uterus, unspecified (principal); E11.9 Type 2 diabetes mellitus without complications
CPT/HCPCS: 80053; 80061; 85027; 86304

== ENCOUNTER 2024-11-22 01:06 | Outpatient (CLI) | payer OTHER, SELFPAY ==
--- NOTE | 2024-11-22 | DI.MAMMO_ITS ---
Exam(s) MAMMO SCREENING EXAM: MAMMO SCREENING CLINICAL HISTORY: Z12.31 Screening TECHNIQUE: Mammograms were interpreted according to the usual protocol including computer analysis w [employer] CAD system, tomosynthesis and C-view imaging. COMPARISON: 2016 through 2022 FINDINGS: The breasts are composed of scattered fibroglandular densities, Breast Density category B. No suspicious masses or suspicious microcalcifications are seen. There is increasing dense tissue in the central inferior right breast, increasing over time. There are a few coarse, benign-appearing theresa cifications. No skin thickening or abnormal axillary lymph nodes are seen. There has been no significant change in the left breast from prior exams. IMPRESSION: Increasing tissue density in the inferior central right breast. Spot compression views and ultrasound are requested for further evaluation. BI-RADS Category 0 - Incomplete: Need additional imaging evaluation Breast Density - Category B, scattered fibroglandular densities. A negative radiographic report should not delay biopsy if a dominant or clinically suspicious mass is present. Up to ten percent of cancers are not identified on mammography. A negative report may reinforce clinical impression. Adenosis and dense breasts may obscure an underlying neoplasm. False positive reports average 6 to 10%. Patient will receive a letter notifying them of these results.
== END 2024-11-22 01:26 ==
LOC: DI 01:06
PROVIDERS: PCP Nurse Practitioner Family; Visit Provider Nurse Practitioner Family
DX: Z12.31 Encounter for screening mammogram for malignant neoplasm of breast (principal); R92.323 Mammographic fibroglandular density, bilateral breasts
CPT/HCPCS: 77063; 77067

== ENCOUNTER 2024-11-29 01:52 | Outpatient (CLI) | payer OTHER, SELFPAY ==
--- NOTE | 2024-11-29 | DI.US_ITS ---
Exam(s) MG MAMMO SCREEN CALL BACK UNI US BREAST RT COMPLETE EXAM: MG MAMMO SCREEN CALL BACK UNI RIGHT AND COMPLETE RIGHT BREAST ULTRASOUND CLINICAL HISTORY: R92.8 ABN mammo, Increasing tissue density inferior central RT Breast. TECHNIQUE: Unilateral RIGHT BREAST spot mammographic images obtained with 3D tomosynthesisand utiliz ing computer aided detection (CAD). . Complete RIGHT breast Ultrasound was also performed, including all 4 quadrants, the retroareolar edson on, and the ipsilateral axilla. COMPARISON: Prior mammograms were reviewed. This additional imaging was performed due to findings described on the recent screening mammogram of 11/22/2024. FINDINGS: DIAGNOSTIC MAMMOGRAM: Additional mammographic views performed todaydoes not dissipate the findings described. We proceeded ultrasound. COMPLETE RIGHT BREAST ULTRASOUND: Ultrasound performed today reveals no evidence of solid lesions in all 4 quadrants. However, at the 7 o'clock central position there are multiple prominent ducts measuring up to 8 mm. There is no solid intraluminal component evident within this duct nor the other prominent ducts. Pat ient denies nipple discharge. We scanned the retroareolar region of the opposite-left breast for comparison and this did not reveal prominent ducts. Scanning of thel right axilla reveals no significant adenopathy. IMPRESSION: 1. There are some dilated ducts in the central 7 o'clock position of the right breast which correspo nd to the mammographic findings. These have most probably been present for years given the mammograp hic findings but have most probably increased in size (there are no prior ultrasounds for comparison) . I recommend repeat right breast mammogram and ultrasound in 6 months to ensure stability The patient was informed of these findings and recommendations by myself prior to leaving the departm ent today. BI-RADS Category 3 - 6 month - Probably Benign Finding: Recommend follow-up mammography and ultrasoun d in 6 months Breast Density - Category B - Scattered areas of fibroglandular density Breast density Category C or D implies that the patient has dense breast tissue. Dense breast tissue can make it harder to find cancer on a mammogram. Dense breast tissue is also associated with an incr eased risk of breast cancer. This information about the result of the mammogram report was provided to the patient to raise their awareness. Use this report when you speak with the patient about their risks for breast cancer, which includes their family history. At that time, you may recommend additional screening tests (Ultrasoun d or MRI) as these tests may add significant information. A negative radiographic report should not delay biopsy if a dominant or clinically suspicious mass is present. Up to ten percent of cancers are not identified on mammography. A negative report may reinforce clinical impression. Adenosis and dense breasts may obscure an underlying neoplasm. False positive reports average 6 to 10%. Patient will receive a letter notifying them of these results.
== END 2024-11-29 02:12 ==
LOC: DI 01:52
PROVIDERS: PCP Nurse Practitioner Family; Visit Provider Nurse Practitioner Family
DX: Z12.31 Encounter for screening mammogram for malignant neoplasm of breast (principal); R92.8 Other abnormal and inconclusive findings on diagnostic imaging of breast; R92.323 Mammographic fibroglandular density, bilateral breasts; D24.1 Benign neoplasm of right breast
CPT/HCPCS: 76642; 77063; 77067

== ENCOUNTER 2024-12-08 15:06 | Outpatient (REF) | payer OTHER, SELFPAY ==
[2024-12-08 16:47] LABS: COMMENT (LAB VIEW ONLY) 143.49 mg/dL; Microalb ug/mg Crea 8.2 ug/mg Cr
== END 2024-12-08 15:07 | disposition home or self-care (01) ==
LOC: NCHCN 15:06
PROVIDERS: PCP Nurse Practitioner Family; Visit Provider Nurse Practitioner Family
DX: R80.9 Proteinuria, unspecified (principal)
CPT/HCPCS: 82043; 82570

== ENCOUNTER 2025-06-08 03:17 | Outpatient (CLI) | payer OTHER, SELFPAY ==
--- NOTE | 2025-06-08 | DI.US_ITS ---
Exam(s) MG MAMMO DIAGNOSTIC UNI US BREAST RT LIMITED EXAM: MAMMO DIAGNOSTIC UNI CLINICAL HISTORY: IMAGES PERFORMED BY ACCIDENT(INCORRECT SIDE_). COMPARISON: 2016 through November 2024. TECHNIQUE: Craniocaudal and mediolateral oblique Full Field Digital Mammography views of both breasts with Computer Aided Diagnosis followed by Tomosynthesis and right breast ultrasound. FINDINGS: Patient was scheduled for six-month follow-up mammogram and ultrasound of the right breast. The left breast was inadvertently performed. Mammography/Tomosynthesis: Left breast: Composed mainly of fat. No masses or suspicious calcifications. No changes from prior exams. No abnormal lymph nodes. Right breast: Masses: None seen. Increased densities again noted in the central portion of the breast. Architectural Distortion: None seen. Microcalcifications: No suspicious pleomorphic-type are seen. Coarse, benign- appearing calcifications are again noted. Skin Thickening/Nipple Retraction: None. Right breast US: Echotexture: Normal appearance of the glandular tissue. Shadowing: No suspicious foci. Cyst: None. Solid lesions: None seen. Ductal dilation: Multiple dilated ducts are again noted in the subareolar region. No debris within the ducts. No intraductal masses are identified. IMPRESSION: 1. No evidence of malignancy is noted. Dilated ducts are again demonstrated in the central right breast. 2. Unless there is more urgent need, follow-up screening mammography is recommended, in 1 year. BI-RADS Category 2 - Benign Findings Breast Density - Category B - There are scattered areas of fibroglandular density. Breast density Category C or D implies that the patient has dense breast tissue. Dense breast tissue can make it harder to find cancer on a mammogram. Dense breast tissue is also associated with an increased risk of breast cancer. This information about the result of the mammogram report was provided to the patient to raise their awareness. Use this report when you speak with the patient about their risks for breast cancer, which includes their family history. At that time, you may recommend additional screening tests (Ultrasound or MRI) as these tests may add significant information. A negative radiographic report should not delay biopsy if a dominant or clinically suspicious mass is present. Up to ten percent of cancers are not identified on mammography. A negative report may reinforce clinical impression. Adenosis and dense breasts may obscure an underlying neoplasm. False positive reports average 6 to 10%. Patient will receive a letter notifying them of these results.
== END 2025-06-08 03:37 ==
PROVIDERS: PCP Nurse Practitioner Family; Visit Provider Nurse Practitioner Family
DX: Z12.31 Encounter for screening mammogram for malignant neoplasm of breast (principal); R92.8 Other abnormal and inconclusive findings on diagnostic imaging of breast; N60.41 Mammary duct ectasia of right breast
CPT/HCPCS: 76642; 77061; 77065; G0279